=== PATIENT | male | born 1965 | race Caucasian/White ===

== ENCOUNTER 2021-05-12 14:15 | Inpatient (IN) ==
[2021-05-12] MEDS ORDERED: dexAMETHasone**PF** 10 MG/ML VIAL IV ONE (14:38)
[2021-05-12] MEDS ORDERED: ACETAMINOPHEN 1,000 MG/100 ML VIAL IV STA (14:38)
[2021-05-12] MEDS ORDERED: ONDANSETRON INJ 2 MG/ML 2 ML VIAL IV STA (14:38)
--- NOTE | 2021-05-12 14:46 | Emergency Department Note ---
History of Present Illness General Chief complaint: Shortness of Breath/Dyspnea Stated complaint: COUGH,FEVER,SORENESS,SOB,NAUSEA,CAN'T EAT Time Seen by Provider: 05/12/21 14:25 Source: patient Mode of arrival: ambulatory Limitations: no limitations History of Present Illness Maximum Pain Intensity: 8 This patient is a 55-year-old male who presents to the emergency department for evaluation of flulike symptoms for the past 1 week. Patient states he has had nasal congestion, cough, shortness of breath, fevers and nausea. He reports he has body aches. He has had a decreased appetite and has not been able to eat or drink much. His is also sick and was positive for COVID-19. Patient was not vaccinated for COVID-19. He denies any history of chronic lung issues were other medical problems. Home Medications Medication Instructions Recorded Confirmed Type naproxen sodium 220 mg tablet 220 mg PO Q8H PRN 05/12/21 05/12/21 History (Aleve) omeprazole 20 mg capsule,delayed 20 mg PO DAILY PRN 05/12/21 05/12/21 History release Allergies Allergy/AdvReac Type Severity Reaction Status Date / Time No Known Allergies Allergy Unverified 05/12/21 17:17 Past Med/Surg History Medical History Eosinophilic esophagitis GERD (gastroesophageal reflux disease) Surgical History H/O lumbosacral spine surgery History of colonoscopy History of esophagogastroduodenoscopy (EGD) Social History Smoking Status: Never smoker Tobacco Type: Cigarettes Feels Safe at Home: Yes Review of Systems A total of 10 systems reviewed and were otherwise negative Physical Exam Vital Signs Vital Signs - 24 hr 05/12/21 14:20 05/12/21 14:40 Temperature 38.8 C H Temperature Source Temporal Artery Scan Pulse Rate 108 H Pulse Rate [Right Finger] 100 H Pulse Rhythm [Right Finger] Regular Pulse Strength [Right Finger] Normal Respiratory Rate 20 20 Respiratory Effort / Characteristics Non-Labored Non-Labored Respiratory Depth Normal Normal Respiratory Pattern Regular Blood Pressure 122/77 Blood Pressure [Left Arm] 122/84 Blood Pressure Mean 92 Blood Pressure Mean [Left Arm] 96 Pulse Oximetry 85 L 94 Oxygen Delivery Method Room Air Nasal Cannula Oxygen Flow Rate 5 Sepsis Recent Fever Within 48 Hours Yes Sepsis New/Unexplained Change in Mental Status N/A Sepsis Action Taken by Nursing No Action Required VITALS: Vitals are noted on the nurse's note and reviewed by myself. GENERAL: This is a 55-year-old male, in no acute distress, well-developed well- nourished. SKIN: The skin was without rashes. EARS: External auditory canals clear, tympanic membranes pearly carr without erythema or effusion bilaterally. EYES: Pupils equal round and reactive to light and accommodation. NOSE: Patent, turbinates mildly swollen. MOUTH: Mucous membranes somewhat dry. Pharynx without erythema or exudate. NECK: Supple without nuchal rigidity. No lymphadenopathy. HEART: Regular rate and rhythm without murmurs gallops or rubs. LUNGS: Lung sounds diminished throughout with crackles in bilateral bases. ABDOMEN: Positive bowel sounds x 4. Soft, nontender to palpation. EXTREMITIES: No pitting edema of the lower extremities. NEURO: Patient was alert and oriented to person place and time. [facility] Guaifenesin (Guaifenesin 600 Mg Tabcr) 600 mg PO Q12 ANJELICA Stop: 06/11/21 20:59 Last Admin: 05/12/21 21:50 Dose: 600 mg Documented by: [id number] Sodium Chloride (Nss) 500 mls @ 80 mls/hr IV .[id number] ONE Stop: 05/12/21 23:28 Last Admin: 05/12/21 18:38 Dose: 80 mls/hr Documented by: [id number] Discontinued Medications Dexamethasone Sodium Phosphate (DexamethasonePf 10 Mg/Ml Vial) 6 mg IV NOW ONE Stop: 05/12/21 14:39 Last Admin: 05/12/21 14:53 Dose: 6 mg Documented by: [id number] Acetaminophen (Ofirmev) 1,000 mg in 100 mls @ 400 mls/hr IV NOW STA Stop: 05/12/21 14:52 Last Infusion: 05/12/21 15:30 Dose: 0 mls/hr Documented by: [id number] Admin: 05/12/21 14:53 Dose: 400 mls/hr Documented by: [id number] Remdesivir 200 mg/ Sodium (Chloride) 250 mls @ 125 mls/hr IV ONE STA; Protocol Stop: 05/12/21 18:58 Last Infusion: 05/12/21 20:52 Dose: 0 mls/hr Documented by: [id number] Admin: 05/12/21 18:38 Dose: 125 mls/hr Documented by: [id number] Pantoprazole Sodium 40 mg/ (Syringe) 10 mls @ 5 mls/min IV QAM ONE Stop: 05/12/21 17:12 Last Admin: 05/12/21 18:38 Dose: 5 mls/min Documented by: [id number] Famotidine 20 mg/ Syringe 5 mls @ 2.5 mls/min IV ONE ONE Stop: 05/12/21 17:13 Last Admin: 05/12/21 18:38 Dose: 2.5 mls/min Documented by: [id number] Ioversol (Optiray 320 125ml) 116 ml IV ONCE ONE Stop: 05/12/21 17:50 Last Admin: 05/12/21 17:51 Dose: 116 ml Documented by: [id number] Ondansetron HCl (Ondansetron Inj 2 Mg/Ml 2 Ml Vial) 4 mg IV NOW STA Stop: 05/12/21 14:39 Last Admin: 05/12/21 14:53 Dose: 4 mg Documented by: [id number] Sodium Chloride (Sodium Chloride 0.9% 10ml Flush) 30 ml IV Q24H ANJELICA Stop: 05/12/21 20:00 Last Admin: 05/12/21 20:52 Dose: Not Given Documented by: [id number] Medical Decision Making Differential Diagnosis Reactive airway disease, pneumonia, pneumothorax, COPD, CHF, infections, cardiac ischemia, pulmonary embolism, musculoskeletal, gastrointestinal, as well as other pathologies. Home Medications Current Medication List: was personally reviewed by me Laboratory Data Attestation: I reviewed the patient's lab results. Result diagrams: 05/12/21 14:47 05/12/21 14:47 Lab Results 05/12/21 05/12/21 05/12/21 Range/Units 14:47 14:47 14:47 WBC 6.24 (4.8-10.8) K/uL RBC 6.65 H (4.7-6.1) M/uL Hgb 15.9 (14.0-18.0) g/dL Hct 46.9 (42-52) % MCV 70.5 L (80-100) fL MCH 23.9 L (25-34) pg MCHC 33.9 (32-36) g/dL RDW Std Deviation 36.3 L (36.4-46.3) fL RDW Coeff of Michelle 14.0 (11.5-14.5) % Plt Count 119 L (130-400) K/uL Immature Gran % (Auto) 0.3 % Neut % (Auto) 72.3 % Lymph % (Auto) 23.2 % Cooke % (Auto) 4.0 % Eos % (Auto) 0.0 % Baso % (Auto) 0.2 % Neut # (Auto) 4.51 (1.4-6.5) K/uL Lymph # (Auto) 1.45 (1.2-3.4) K/uL Cooke # (Auto) 0.25 (0.11-0.59) K/uL Eos # (Auto) 0.00 (0-0.5) K/uL Baso # (Auto) 0.01 (0-0.2) K/uL Immature Gran # (Auto) 0.02 (0.00-0.02) K/uL Platelet Estimate Decreased L (Normal) RBC Morphology Unremarkable D-Dimer Sodium 131 L (136-145) mmol/L Potassium 3.8 (3.5-5.1) mmol/L Chloride 97 L (98-107) mmol/L Carbon Dioxide 28 (21-32) mmol/L Anion Gap 6.0 (3-11) BUN 17 (7-18) mg/dl Creatinine 0.94 (0.6-1.4) mg/dl Est Cr Clr Drug Dosing 90.6 ml/min Est GFR ( Amer) 104.6 ml/min Est GFR (Non-Af Amer) 90.3 ml/min BUN/Creatinine Ratio 17.7 (10-20) Glucose 132 H (70-99) mg/dl Calcium 8.5 (8.5-10.1) mg/dl Total Bilirubin 0.7 (0.2-1) mg/dl AST 46 H (15-37) U/L ALT 31 (12-78) Alkaline Phosphatase 49 (45-117) U/L C-Reactive Protein 8.40 H (0-0.29) mg/dl Total Protein 7.5 (6.4-8.2) gm/dl Albumin 3.1 L (3.4-5.0) gm/dl Globulin 4.4 H (2.5-4.0) gm/dl Albumin/Globulin Ratio 0.7 L (0.9-2) Procalcitonin 0.23 (0-0.5) ng/ml SARS-CoV-2 (PCR) (Negative) Influenza Type A (PCR) (Neg) Influenza Type B (PCR) (Neg) RSV (RT-PCR) (Neg) 05/12/21 05/12/21 05/12/21 Range/Units 14:47 14:47 15:35 WBC (4.8-10.8) K/uL RBC (4.7-6.1) M/uL Hgb (14.0-18.0) g/dL Hct (42-52) % MCV (80-100) fL MCH (25-34) pg MCHC (32-36) g/dL RDW Std Deviation (36.4-46.3) fL RDW Coeff of Michelle (11.5-14.5) % Plt Count (130-400) K/uL Immature Gran % (Auto) % Neut % (Auto) % Lymph % (Auto) % Cooke % (Auto) % Eos % (Auto) % Baso % (Auto) % Neut # (Auto) (1.4-6.5) K/uL Lymph # (Auto) (1.2-3.4) K/uL Cooke # (Auto) (0.11-0.59) K/uL Eos # (Auto) (0-0.5) K/uL Baso # (Auto) (0-0.2) K/uL Immature Gran # (Auto) (0.00-0.02) K/uL Platelet Estimate (Normal) RBC Morphology D-Dimer Cancelled 670 H* Sodium (136-145) mmol/L Potassium (3.5-5.1) mmol/L Chloride (98-107) mmol/L Carbon Dioxide (21-32) mmol/L Anion Gap (3-11) BUN (7-18) mg/dl Creatinine (0.6-1.4) mg/dl Est Cr Clr Drug Dosing ml/min Est GFR ( Amer) ml/min Est GFR (Non-Af Amer) ml/min BUN/Creatinine Ratio (10-20) Glucose (70-99) mg/dl Calcium (8.5-10.1) mg/dl Total Bilirubin (0.2-1) mg/dl AST (15-37) U/L ALT (12-78) Alkaline Phosphatase (45-117) U/L C-Reactive Protein (0-0.29) mg/dl Total Protein (6.4-8.2) gm/dl Albumin (3.4-5.0) gm/dl Globulin (2.5-4.0) gm/dl Albumin/Globulin Ratio (0.9-2) Procalcitonin (0-0.5) ng/ml SARS-CoV-2 (PCR) POSITIVE A* (Negative) Influenza Type A (PCR) Negative (Neg) Influenza Type B (PCR) Negative (Neg) RSV (RT-PCR) Negative (Neg) Imaging Data Attestation: I personally reviewed and interpreted this imaging study as follows: Radiologist's Impression: Chest X-Ray 05/12/21 14:38 XR chest 1V portable HISTORY: 55 years-old Male Dyspnea acute shortness of breath COMPARISON: None TECHNIQUE: Portable AP view of the chest FINDINGS: Cardiac silhouette is upper limits of normal in size. Interstitial coarsening with patchy bilateral airspace opacities. No pneumothorax. Suspected trace pleural effusions. Bones appear grossly intact. IMPRESSION: Patchy bilateral airspace opacities are compatible with multifocal pneumonia. ACT 112: Negative or not required by law. The above report was generated using voice recognition software. It may contain grammatical, syntax or spelling errors. Electronically signed by: Michelet Mason M.D. 05/12/2021 3:23 PM Chest CTA 05/12/21 16:04 CT angio chest PE protocol CT DOSE: 410.84 mGy.cm HISTORY: 55 years-old Male with covid, elevated dimer, sob. Acute shortness of breath with elevated d-dimer. COVID Positive. TECHNIQUE: Multiple CTA images of the chest were obtained after the intravenous administration of 116 ml Optiray. Coronal and sagittal MIPS were obtained from the axial data set and were submitted for review. All measurements were obtained according to NASCET criteria. A dose lowering technique was utilized adhering to the principles of ALARA. COMPARISON: Chest radiograph of same day FINDINGS: CTA: The heart is upper limits of size. No pericardial effusion. No thoracic aortic aneurysm or dissection. Unremarkable pulmonary artery. There are no filling defects identified to suggest thromboembolic disease. CT CHEST: No thyroid nodule. Mildly enlarged mediastinal and hilar lymph nodes measure up to 10 mm. No pneumothorax or pleural effusion. Bilateral subpleural predominant groundglass and alveolar opacities are noted with dependent bibasilar consolidation. The central airways are patent. The spleen appears mildly enlarged. Hypodense foci of the liver suggestive of cysts measure up to 4.9 cm within the left hepatic lobe. Several foci are too small to adequately characterize. Unremarkable soft tissues. No acute fracture. The bones appear grossly intact. IMPRESSION: 1. No pulmonary emboli. 2. Multilobar distribution of bilateral segmental groundglass and consolidative opacities compatible with viral pneumonia. 3. Mild mediastinal and hilar adenopathy, likely reactive. ACT 112: Negative or not required by law. The above report was generated using voice recognition software. It may contain grammatical, syntax or spelling errors. Electronically signed by: Michelet Mason M.D. 05/12/2021 6:24 PM ECG Data Attestation: I personally reviewed and interpreted this ECG as follows: Indication: + SOB/dyspnea Rate (beats per minute): 87 Rhythm: + normal sinus ECG Intervals/blocks: + Normal QRS ECG ST segments: + Normal ST segments Comparison ECG Date: no prior available MDM Narrative Continuous pvc monitor: Order was placed for continuous pvc monitor. Patient was placed on the pvc monitor. Patient was noted to be in sinus tachycardia at an initial rate of 110 bpm. The patient is a 55-year-old male who presents today complaining of shortness of breath and flulike symptoms. Patient recently exposed to his who was positive for COVID-19. Patient was found to be positive for COVID-19. He was hypoxic with room air O2 saturations of 85% on arrival. O2 sat improved when placed on 5 L oxygen via nasal cannula. Patient given dexamethasone. Work-up as above. No evidence of PE on CT scan. Discussed with the [facility] spitalist, did order remdesivir at their request. [facility] hospitalist will evaluate the patient for further care. Impression & Plan Pneumonia due to COVID-19 virus, Acute respiratory failure with hypoxia Discharge Plan Visit Data Chief Complaint: Shortness of Breath/Dyspnea Stated Complaint: COUGH,FEVER,SORENESS,SOB,NAUSEA,CAN'T EAT ED Provider: Sravan Chery ED Midlevel Provider: Moraima Smalls Discharge Problem: Pneumonia due to COVID-19 virus, Acute respiratory failure with hypoxia Discharge Instructions Interventions: ED Discharge Assessment Last Done: 05/12/21 19:58
[2021-05-12 14:59] LABS: Mean Corpuscular Hgb Conc 33.9 g/dL (32-36)
--- NOTE | 2021-05-12 15:24 | XRay Report ---
XR chest 1V portable HISTORY: 55 years-old Male Dyspnea acute shortness of breath COMPARISON: None TECHNIQUE: Portable AP view of the chest FINDINGS: Cardiac silhouette is upper limits of normal in size. Interstitial coarsening with patchy bilateral a irspace opacities. No pneumothorax. Suspected trace pleural effusions. Bones appear grossly intact. IMPRESSION: Patchy bilateral airspace opacities are compatible with multifocal pneumonia. ACT 112: Negative or not required by law. The above report was generated using voice recognition software. It may contain grammatical, syntax o r spelling errors. Electronically signed by: Michelet Mason M.D. 05/12/2021 3:23 PM
[2021-05-12 15:27] LABS: Albumin Level 3.1 gm/dl (3.4-5.0); BUN Creatinine Ratio 17.7 (10-20); Calcium 8.5 mg/dl (8.5-10.1); Creatinine Clr Calc Pharmacy 90.6 ml/min; Est GFR (African American) 104.6 ml/min; Est GFR (Non-African American) 90.3 ml/min; Potassium 3.8 mmol/L (3.5-5.1)
[2021-05-12 15:30] LABS: Albumin Globulin Ratio 0.7 (0.9-2); Bilirubin,Total 0.7 mg/dl (0.2-1); C Reactive Protein 8.4 mg/dl (0-0.29); Globulin 4.4 gm/dl (2.5-4.0); Total Protein 7.5 gm/dl (6.4-8.2)
[2021-05-12 15:47] LABS: Hematocrit (blood only) 46.9 % (42-52); Hemoglobin 15.9 g/dL (14.0-18.0); Mean Corpuscular Hemoglobin 23.9 pg (25-34); Mean Corpuscular Volume 70.5 fL (80-100); RDW Standard Deviation 36.3 fL (36.4-46.3); Red Blood Count 6.65 M/uL (4.7-6.1); White Blood Count 6.24 K/uL (4.8-10.8)
[2021-05-12 15:49] LABS: Platelet Count 119 K/uL (130-400)
[2021-05-12 15:50] LABS: Basophils # (auto) 0.01 K/uL (0-0.2); Basophils % (auto) 0.2 %; Immature Granulocytes # (auto) 0.02 K/uL (0.00-0.02); Immature Granulocytes % (auto) 0.3 %; Lymphocytes # (auto) 1.45 K/uL (1.2-3.4); Lymphocytes % (auto) 23.2 %; Monocytes # (auto) 0.25 K/uL (0.11-0.59); Neutrophils # (auto) 4.51 K/uL (1.4-6.5); Neutrophils % (auto) 72.3 %; Platelet Estimate Decreased (Normal); RBC Morphology Unremarkable
[2021-05-12 15:54] LABS: D Dimer 670 ug/L FEU (0-500)
[2021-05-12 16:20] LABS: Influenza A virus by PCR Negative (Neg); Influenza B virus by PCR Negative (Neg); RSV by PCR Negative (Neg)
[2021-05-12 16:26] LABS: SARS CoV2 RNA(COVID-19) InHosp POSITIVE (Negative)
[2021-05-12] MEDS ORDERED: REMDESIVIR 200 MG in SODIUM CHLORIDE 0.9% 210 ML IV STA (16:59)
[2021-05-12] MEDS ORDERED: SODIUM CHLORIDE 0.9% 10ML FLUSH IV SCH (17:00)
[2021-05-12] MEDS ORDERED: ACETAMINOPHEN 1000 MG/100 ML IV IV PRN (17:10)
[2021-05-12] MEDS ORDERED: PANTOprazole 40 MG in SYRINGE 0 ML IV ONE (17:11)
[2021-05-12] MEDS ORDERED: FAMOTIDINE 20 MG in SYRINGE 3 ML IV ONE (17:12)
[2021-05-12] MEDS ORDERED: SODIUM CHLORIDE 0.9% 500 ML IV ONE (17:14)
--- NOTE | 2021-05-12 17:26 | History & Physical Report ---
Date of Service May 12, 2021 Assessment & Plan (1) Acute respiratory failure with hypoxia: (2) Pneumonia due to COVID-19 virus: Plan: Patient presents with fever, cough, shortness of breath fever 38.8 Celsius in the ED Chest x-ray consistent with multifocal pneumonia CT PE negative for PE Meets SIRS criteria for sepsis, with fever and tachycardia Procalcitonin 0.23 CRP 8.4 D-dimer 670 Positive for COVID-19 in the ED Patient reports that his was diagnosed with COVID-19 several days ago and is also sick In addition to shortness of breath, patient reports nausea, poor appetite, abdominal discomfort but no diarrhea He has cough but not much of sputum production No chest pain He was saturating 85% on room air, currently he is on 5 L of supplemental O2 in the ED He was started on dexamethasone, and remdesivir, he was also given Zofran and IV Tylenol in the ED Plan to continue remdesivir up to 5 days Plan to continue dexamethasone up to 10 days guaifenesin, flutter valve, incentive spirometry will try to wean off O2 GERD -PPI DVT prophylaxis: lovenox Code full History of Present Illness Chief Complaint: Shortness of breath, fever Primary Care Provider: Jose Yan MD 55 M w/ hx of GERD, who presents with fever, shortness of breath, cough and nausea, and found to be hypoxic and positive for covid 19. Pt reports feeling sick for several days now. His has similar symptoms and was diagnosed with covid 19 several days ago. Pt says he can't eat or drink much as he has been having abdominal discomfort and nausea. Denies having diarrhea. Reports having fevers for several days as well. Now presents with increased shortness of breath and cough. No chest pain. In the ED pt found hypoxic 85% on RA, and currently is on 5L of suppl.O2. Covid 19 test positive. CXR c/w multifocal pna. Allergies Allergy/AdvReac Type Severity Reaction Status Date / Time No Known Allergies Allergy Unverified 05/12/21 17:17 Home Medications Medication Instructions Recorded Confirmed Type naproxen sodium 220 mg tablet 220 mg PO Q8H PRN 05/12/21 05/12/21 History (Aleve) omeprazole 20 mg capsule,delayed 20 mg PO DAILY PRN 05/12/21 05/12/21 History release Past Med/Surg History Medical History Eosinophilic esophagitis GERD (gastroesophageal reflux disease) Surgical History H/O lumbosacral spine surgery History of colonoscopy History of esophagogastroduodenoscopy (EGD) Social History Smoking Status: Never smoker Tobacco Type: Cigarettes Hx Alcohol Use: No Hx Substance Use: No Preferred Language: [place] Student Liaison Officer Required: No Beliefs That Will Affect Care: None Current Living Situation: Spouse Other Information That Helps Us Care for You: No Feels Safe at Home: Yes Assistive Devices: Oxygen - Continuous Review of Systems Constitutional: + fever, + chills, + fatigue and + weakness Eyes: no problem reported Ear, Nose, Mouth, Throat: no problem reported Respiratory: + cough and + dyspnea Cardiovascular: no chest pain Gastrointestinal: + abdominal pain and + nausea Genitourinary: no problem reported Musculoskeletal: no problem reported Integumentary: no problem reported Neurologic: no problem reported Psychiatric: no problem reported Endocrine: no problem reported Hematologic / Lymphatic: no problem reported Allergy / Immunological: no problem reported Physical Exam Constitutional: WD/WN, vitals as above (M in NAD, on suppl.O2) Eyes: PERRL, conjunctivae normal, anicteric sclerae ENMT: external ear and nose normal, oropharynx normal Neck: trachea midline, no thyromegaly Respiratory: normal respiratory effort; no respiratory distress Auscultation: + rhonchi (mild diffuse); no crackles and no wheezes Cardiovascular: RRR, no murmur, no edema Chest (Breasts): Chest: normal inspection of chest Gastrointestinal (Abdomen): normal bowel sounds, soft, nontender, no hepatosplenomegaly Musculoskeletal: no cyanosis or clubbing, extremities motor strength 5/5 Head/Neck/Chest: normocephalic, head atraumatic and neck supple Skin: no rashes, warm and dry Neurologic: PERRL, EOMI, accommodation nl, no face palsy, no dysarthria Psychiatric: A+Ox3, euthymic affect Genitourinary: no CVA tenderness Lymphatic: no lymphedema Results & Data Results & Data ([facility]) Vital Signs (Past 12 Hours) Vital Signs Temp Pulse Pulse Resp BP BP Pulse Ox 05/12/21 14:40 100 H 20 122/84 94 05/12/21 14:20 38.8 C H 108 H 20 122/77 85 L Laboratory Results 05/12/21 05/12/21 05/12/21 Range/Units 15:35 14:47 14:47 WBC (4.8-10.8) K/uL RBC (4.7-6.1) M/uL Hgb (14.0-18.0) g/dL Hct (42-52) % MCV (80-100) fL MCH (25-34) pg MCHC (32-36) g/dL RDW Std Deviation (36.4-46.3) fL RDW Coeff of Michelle (11.5-14.5) % Plt Count (130-400) K/uL Immature Gran % (Auto) % Neut % (Auto) % Lymph % (Auto) % Rankin % (Auto) % Eos % (Auto) % Baso % (Auto) % Neut # (Auto) (1.4-6.5) K/uL Lymph # (Auto) (1.2-3.4) K/uL Rankin # (Auto) (0.11-0.59) K/uL Eos # (Auto) (0-0.5) K/uL Baso # (Auto) (0-0.2) K/uL Immature Gran # (Auto) (0.00-0.02) K/uL Platelet Estimate (Normal) RBC Morphology D-Dimer 670 H* Cancelled Sodium (136-145) mmol/L Potassium (3.5-5.1) mmol/L Chloride (98-107) mmol/L Carbon Dioxide (21-32) mmol/L Anion Gap (3-11) BUN (7-18) mg/dl Creatinine (0.6-1.4) mg/dl Est Cr Clr Drug Dosing ml/min Est GFR ( Amer) ml/min Est GFR (Non-Af Amer) ml/min BUN/Creatinine Ratio (10-20) Glucose (70-99) mg/dl Calcium (8.5-10.1) mg/dl Total Bilirubin (0.2-1) mg/dl AST (15-37) U/L ALT (12-78) Alkaline Phosphatase (45-117) U/L C-Reactive Protein (0-0.29) mg/dl Total Protein (6.4-8.2) gm/dl Albumin (3.4-5.0) gm/dl Globulin (2.5-4.0) gm/dl Albumin/Globulin Ratio (0.9-2) Procalcitonin (0-0.5) ng/ml SARS-CoV-2 (PCR) POSITIVE A* (Negative) Influenza Type A (PCR) Negative (Neg) Influenza Type B (PCR) Negative (Neg) RSV (RT-PCR) Negative (Neg) 05/12/21 05/12/21 05/12/21 Range/Units 14:47 14:47 14:47 WBC 6.24 (4.8-10.8) K/uL RBC 6.65 H (4.7-6.1) M/uL Hgb 15.9 (14.0-18.0) g/dL Hct 46.9 (42-52) % MCV 70.5 L (80-100) fL MCH 23.9 L (25-34) pg MCHC 33.9 (32-36) g/dL RDW Std Deviation 36.3 L (36.4-46.3) fL RDW Coeff of Michelle 14.0 (11.5-14.5) % Plt Count 119 L (130-400) K/uL Immature Gran % (Auto) 0.3 % Neut % (Auto) 72.3 % Lymph % (Auto) 23.2 % Rankin % (Auto) 4.0 % Eos % (Auto) 0.0 % Baso % (Auto) 0.2 % Neut # (Auto) 4.51 (1.4-6.5) K/uL Lymph # (Auto) 1.45 (1.2-3.4) K/uL Rankin # (Auto) 0.25 (0.11-0.59) K/uL Eos # (Auto) 0.00 (0-0.5) K/uL Baso # (Auto) 0.01 (0-0.2) K/uL Immature Gran # (Auto) 0.02 (0.00-0.02) K/uL Platelet Estimate Decreased L (Normal) RBC Morphology Unremarkable D-Dimer Sodium 131 L (136-145) mmol/L Potassium 3.8 (3.5-5.1) mmol/L Chloride 97 L (98-107) mmol/L Carbon Dioxide 28 (21-32) mmol/L Anion Gap 6.0 (3-11) BUN 17 (7-18) mg/dl Creatinine 0.94 (0.6-1.4) mg/dl Est Cr Clr Drug Dosing 90.6 ml/min Est GFR ( Amer) 104.6 ml/min Est GFR (Non-Af Amer) 90.3 ml/min BUN/Creatinine Ratio 17.7 (10-20) Glucose 132 H (70-99) mg/dl Calcium 8.5 (8.5-10.1) mg/dl Total Bilirubin 0.7 (0.2-1) mg/dl AST 46 H (15-37) U/L ALT 31 (12-78) Alkaline Phosphatase 49 (45-117) U/L C-Reactive Protein 8.40 H (0-0.29) mg/dl Total Protein 7.5 (6.4-8.2) gm/dl Albumin 3.1 L (3.4-5.0) gm/dl Globulin 4.4 H (2.5-4.0) gm/dl Albumin/Globulin Ratio 0.7 L (0.9-2) Procalcitonin 0.23 (0-0.5) ng/ml SARS-CoV-2 (PCR) (Negative) Influenza Type A (PCR) (Neg) Influenza Type B (PCR) (Neg) RSV (RT-PCR) (Neg) Diagnostic Findings CXR FINDINGS: Cardiac silhouette is upper limits of normal in size. Interstitial coarsening with patchy bilateral airspace opacities. No pneumothorax. Suspected trace pleural effusions. Bones appear grossly intact. IMPRESSION: Patchy bilateral airspace opacities are compatible with multifocal pneumonia. CT angio chest 1. No pulmonary emboli. 2. Multilobar distribution of bilateral segmental groundglass and consolidative opacities compatible with viral pneumonia. 3. Mild mediastinal and hilar adenopathy, likely reactive. Code Status & VTE Plan VTE Prophylaxis Plan VTE Prophylaxis will be ordered: Yes
[2021-05-12] MEDS ORDERED: OPTIRAY 320 125ml IV ONE (17:49)
--- NOTE | 2021-05-12 18:25 | CT Scan Report ---
CT angio chest PE protocol CT DOSE: 410.84 mGy.cm HISTORY: 55 years-old Male with covid, elevated dimer, sob. Acute shortness of breath with elevated d-dimer. COVID Positive. TECHNIQUE: Multiple CTA images of the chest were obtained after the intravenous administration of 116 ml Optiray. Coronal and sagittal MIPS were obtained from the axial data set and were submitted for review. All measurements were obtained according to NASCET criteria. A dose lowering technique was u tilized adhering to the principles of ALARA. COMPARISON: Chest radiograph of same day FINDINGS: CTA: The heart is upper limits of size. No pericardial effusion. No thoracic aortic aneurysm or dissection . Unremarkable pulmonary artery. There are no filling defects identified to suggest thromboembolic di sease. CT CHEST: No thyroid nodule. Mildly enlarged mediastinal and hilar lymph nodes measure up to 10 mm. No pneumoth orax or pleural effusion. Bilateral subpleural predominant groundglass and alveolar opacities are not ed with dependent bibasilar consolidation. The central airways are patent. The spleen appears mildly enlarged. Hypodense foci of the liver suggestive of cysts measure up to 4.9 cm within the left hepatic lobe. Several foci are too small to adequately characterize. Unremarkable soft tissues. No acute fracture. The bones appear grossly intact. IMPRESSION: 1. No pulmonary emboli. 2. Multilobar distribution of bilateral segmental groundglass and consolidative opacities compatible with viral pneumonia. 3. Mild mediastinal and hilar adenopathy, likely reactive. ACT 112: Negative or not required by law. The above report was generated using voice recognition software. It may contain grammatical, syntax o r spelling errors. Electronically signed by: Michelet Mason M.D. 05/12/2021 6:24 PM
[2021-05-12] MEDS ORDERED: REMDESIVIR 100 MG in SODIUM CHLORIDE 0.9% 230 ML IV SCH (20:00)
[2021-05-12] MEDS: guaiFENesin 600 MG TABCR PO SCH (21:50)
[2021-05-13] MEDS ORDERED: ONDANSETRON INJ 2 MG/ML 2 ML VIAL IV PRN (03:56)
[2021-05-13] MEDS ORDERED: FAMOTIDINE 20 MG in SYRINGE 3 ML IV PRN (03:56)
[2021-05-13] MEDS: ENOXAPARIN INJ 40 MG/0.4 ML SYR SQ SCH ×3 (05:39→20:20)
[2021-05-13 07:34] LABS: Mean Corpuscular Hgb Conc 32.9 g/dL (32-36)
[2021-05-13 08:04] LABS: Hematocrit (blood only) 44.7 % (42-52); Hemoglobin 14.7 g/dL (14.0-18.0); Mean Corpuscular Hemoglobin 23.3 pg (25-34); Mean Corpuscular Volume 70.7 fL (80-100); RDW Coefficient of Variation 14.2 % (11.5-14.5); Red Blood Count 6.32 M/uL (4.7-6.1); White Blood Count 4.86 K/uL (4.8-10.8)
--- NOTE | 2021-05-13 08:07 | Hospitalist Progress Note ---
Date of Service May 13, 2021 Assessment & Plan (1) Acute respiratory failure with hypoxia: (2) Pneumonia due to COVID-19 virus: Plan: Patient presents with fever, cough, shortness of breath fever 38.8 Celsius in the ED Chest x-ray consistent with multifocal pneumonia CT PE negative for PE Meets SIRS criteria for sepsis, with fever and tachycardia Procalcitonin 0.23 CRP 8.4 D-dimer 670 Positive for COVID-19 in the ED Patient reports that his was diagnosed with COVID-19 several days ago and is also sick In addition to shortness of breath, patient reports nausea, poor appetite, abdominal discomfort but no diarrhea Abdominal discomfort and nausea now improved He has cough but not much of sputum production No chest pain He was saturating 85% on room air in the ED and was placed on 5 L of supplemental O2 - he is still on 5-6L He was started on dexamethasone, and remdesivir, he was also given Zofran and IV Tylenol in the ED Plan to continue remdesivir up to 5 days Plan to continue dexamethasone up to 10 days guaifenesin, flutter valve, incentive spirometry will try to wean off O2 GERD -PPI DVT prophylaxis: lovenox Code full Admission and Anticipated Discharge Date Admission Date: May 12, 2021 Subjective Pt seen in follow up of hypoxia, covid 19 pna Pt is currently proning, still on 5L of suppl. O2 Says his abdominal discomfort feels better, nausea much improved and he would like his diet to be advanced Denies any chest pain, fever, chills, increased shortness of breath He is able to speak in full sentences Of note, pt's was in ER today to be evaluated - she was diagnosed w/ covid before the pt. Per pt, she was discharged home. Pt's daughter in law reached out via [employer] text and was updated via [employer] text. Review of Systems Review of Systems: All systems reviewed & are unremarkable except as noted in Subjective Physical Exam Physical Exam: Constitutional:L WD/WN M in NAD, on suppl.O2 via NC 5 -6L Eyes: PERRL, EOMI, conju nctivae normal, an icteric sclerae ENMT: external ear and n ose normal, oropha rynx normal Neck: supple Respiratory: normal respiratory effort; no respir atory distress Au scultation: + rhon chi (mild diffuse) ; no crackles and no wheezes Cardiovascular:L RRR, no murmur, no edema Chest (Breasts): Chest: normal insp ection of chest Gastrointestinal ( Abdomen): normal bowel sound s, soft, nontender , nondistended Musculoskeletal: extremities motor strength 5/5 Head /Neck/Chest: normo cephalic, head atr aumatic and neck s upple Skin: no rashes, warm an d dry Neurologic: PERRL, EOMI, no fa ce palsy, no dysar thria, moves extre mities Psychiatric: A+Ox3, euthymic af fect Genitourinary: no CVA tenderness Lymphatic: no lymphedema Results & Data Results & Data ([facility]) Vital Signs (Past 12 Hours) Vital Signs Temp Pulse Resp BP Pulse Ox 05/13/21 06:58 36.4 C L 70 18 111/71 91 05/13/21 03:23 36.6 C 62 18 125/83 95 05/12/21 23:56 36.9 C 70 19 125/69 93 Laboratory Results 05/13/21 05/13/21 Range/Units 06:22 06:22 WBC 4.86 (4.8-10.8) K/uL RBC 6.32 H (4.7-6.1) M/uL Hgb 14.7 (14.0-18.0) g/dL Hct 44.7 (42-52) % MCV 70.7 L (80-100) fL MCH 23.3 L (25-34) pg MCHC 32.9 (32-36) g/dL RDW Std Deviation 37.0 (36.4-46.3) fL RDW Coeff of Michelle 14.2 (11.5-14.5) % Plt Count 134 (130-400) K/uL Platelet Estimate Decreased L (Normal) Sodium 136 (136-145) mmol/L Potassium 4.4 D (3.5-5.1) mmol/L Chloride 101 (98-107) mmol/L Carbon Dioxide 30 (21-32) mmol/L Anion Gap 5.0 (3-11) BUN 21 H (7-18) mg/dl Creatinine 0.91 (0.6-1.4) mg/dl Est Cr Clr Drug Dosing 93.6 ml/min Est GFR ( Amer) 108.8 ml/min Est GFR (Non-Af Amer) 93.9 ml/min BUN/Creatinine Ratio 22.4 H (10-20) Glucose 164 H (70-99) mg/dl Calcium 8.5 (8.5-10.1) mg/dl Phosphorus 2.7 (2.5-4.9) mg/dl Magnesium 2.5 H (1.8-2.4) mg/dl Total Bilirubin 0.5 (0.2-1) mg/dl AST 42 H (15-37) U/L ALT 35 (12-78) Alkaline Phosphatase 46 (45-117) U/L Total Protein 6.7 (6.4-8.2) gm/dl Albumin 2.6 L (3.4-5.0) gm/dl Globulin 4.1 H (2.5-4.0) gm/dl Albumin/Globulin Ratio 0.6 L (0.9-2) Medications Administered Current Inpatient Medications Acetaminophen (Acetaminophen 325 Mg Tab) 650 mg PO Q4H PRN PRN Reason: Pain or Fever Stop: 06/11/21 17:05 Enoxaparin Sodium (Enoxaparin Inj 40 Mg/0.4 Ml Syr) 40 mg SQ Q12H [facility] Stop: 06/12/21 05:59 Last Admin: 05/13/21 05:39 Dose: 40 mg Documented by: Guaifenesin (Guaifenesin 600 Mg Tabcr) 600 mg PO Q12 [facility] Stop: 06/11/21 20:59 Last Admin: 05/13/21 11:39 Dose: 600 mg Documented by: Remdesivir 100 mg/ Sodium (Chloride) 250 mls @ 250 mls/hr IV Q24H [facility]; Protocol Stop: 05/16/21 20:59 Famotidine 20 mg/ Syringe 5 mls @ 2.5 mls/min IV BID PRN PRN Reason: dyspepsia Stop: 06/12/21 08:59 Dexamethasone 6 mg/ Syringe 1.5 mls @ 1 mls/min IV Q24H [facility] Stop: 05/21/21 08:59 Last Admin: 05/13/21 08:44 Dose: 1 mls/min Documented by: Ondansetron HCl (Ondansetron Inj 2 Mg/Ml 2 Ml Vial) 2 mg IV Q4H PRN PRN Reason: Nausea Stop: 06/12/21 03:55 Pantoprazole Sodium (Pantoprazole 40 Mg Tab) 40 mg PO QAM [facility] Stop: 06/12/21 08:59 Last Admin: 05/13/21 08:44 Dose: 40 mg Documented by: Sodium Chloride (Sodium Chloride 0.9% 10ml Flush) 30 ml IV Q24H [facility] Stop: 05/16/21 21:01
[2021-05-13 08:09] LABS: Albumin Globulin Ratio 0.6 (0.9-2); Albumin Level 2.6 gm/dl (3.4-5.0); BUN Creatinine Ratio 22.4 (10-20); Calcium 8.5 mg/dl (8.5-10.1); Creatinine Clr Calc Pharmacy 93.6 ml/min; Est GFR (African American) 108.8 ml/min; Est GFR (Non-African American) 93.9 ml/min; Globulin 4.1 gm/dl (2.5-4.0); Magnesium 2.5 mg/dl (1.8-2.4); Phosphorus 2.7 mg/dl (2.5-4.9); Potassium 4.4 mmol/L (3.5-5.1); Total Protein 6.7 gm/dl (6.4-8.2)
[2021-05-13 08:10] LABS: Platelet Count 134 K/uL (130-400); Platelet Estimate Decreased (Normal)
[2021-05-13] MEDS: dexAMETHasone 6 MG in SYRINGE 0 ML IV SCH (08:44)
[2021-05-13] MEDS: PANTOprazole 40 MG TAB PO SCH (08:44)
[2021-05-13 09:15] LABS: Bilirubin,Total 0.5 mg/dl (0.2-1)
[2021-05-13] MEDS: guaiFENesin 600 MG TABCR PO SCH ×2 (11:39→20:20)
[2021-05-13] MEDS ORDERED: REMDESIVIR 100 MG in SODIUM CHLORIDE 0.9% 230 ML IV SCH (17:00)
[2021-05-13] MEDS: REMDESIVIR 100 MG in SODIUM CHLORIDE 0.9% 230 ML IV SCH (20:18)
[2021-05-13] MEDS: SODIUM CHLORIDE 0.9% 10ML FLUSH IV SCH (20:19)
[2021-05-14] MEDS: ENOXAPARIN INJ 40 MG/0.4 ML SYR SQ SCH ×2 (05:41→18:07)
[2021-05-14 07:31] LABS: Hematocrit (blood only) 44.4 % (42-52); Hemoglobin 14.8 g/dL (14.0-18.0); Mean Corpuscular Hemoglobin 23.6 pg (25-34); Mean Corpuscular Hgb Conc 33.3 g/dL (32-36); Mean Corpuscular Volume 70.9 fL (80-100); Platelet Count 174 K/uL (130-400); RDW Coefficient of Variation 14.2 % (11.5-14.5); RDW Standard Deviation 37.2 fL (36.4-46.3); Red Blood Count 6.26 M/uL (4.7-6.1); White Blood Count 6.43 K/uL (4.8-10.8)
--- NOTE | 2021-05-14 07:33 | Electrocardiogram Report ---
Test Reason : Blood Pressure : / mmHG Vent. Rate : 087 BPM Atrial Rate : 087 BPM P-R Int : 148 ms QRS Dur : 068 ms QT Int : 354 ms P-R-T Axes : 038 024 012 degrees QTc Int : 425 ms Normal sinus rhythm Normal ECG No previous ECGs available Confirmed by Jose Baker ([id number]) on 05/14/2021 7:32:39 AM Referred By: REFERRED SELF Confirmed By:Jose Baker
[2021-05-14] MEDS: guaiFENesin 600 MG TABCR PO SCH ×2 (08:22→20:53)
[2021-05-14] MEDS: dexAMETHasone 6 MG in SYRINGE 0 ML IV SCH (08:22)
[2021-05-14] MEDS: PANTOprazole 40 MG TAB PO SCH (08:22)
[2021-05-14] MEDS ORDERED: FAMOTIDINE 20 MG TAB PO PRN (09:36)
[2021-05-14 09:42] LABS: Albumin Level 2.4 gm/dl (3.4-5.0); Calcium 8.3 mg/dl (8.5-10.1); Creatinine Clr Calc Pharmacy 106.5 ml/min; Est GFR (African American) 115.7 ml/min; Est GFR (Non-African American) 99.9 ml/min; Magnesium 2.5 mg/dl (1.8-2.4); Potassium 4.5 mmol/L (3.5-5.1)
[2021-05-14 09:44] LABS: Albumin Globulin Ratio 0.6 (0.9-2); Bilirubin,Total 0.5 mg/dl (0.2-1); C Reactive Protein 3.01 mg/dl (0-0.29); Phosphorus 3.1 mg/dl (2.5-4.9); Total Protein 6.4 gm/dl (6.4-8.2)
--- NOTE | 2021-05-14 10:13 | Hospitalist Progress Note ---
Date of Service May 14, 2021 Assessment & Plan (1) Acute respiratory failure with hypoxia: Plan: 2/[address] PE negative for blood clot. Met SIRS criteria with fever and tachycardia on admission. CRP 3 so doesn't meet criteria for baricitinib at this time. Continue remdesivir and dexamethasone. Cont guaifenesin, flutter valve, incentive spirometry. Cont to prone. OK with intubation at this time if needed. Transfer to PCU. (2) Pneumonia due to COVID-19 virus: (3) GERD (gastroesophageal reflux disease): Plan: Cont PPI daily (4) DVT prophylaxis: Plan: Lovenox Full Dispo-transfer to PCU. Kiara Vazquez DO [facility] Hospitalist Admission and Anticipated Discharge Date Admission Date: May 12, 2021 Subjective 55 yo M with two weeks of symptoms of COVID 19. Increased oxygen needs overnight from 5LPM to 12LPM via hi flow green nasal canula. He appears withdrawn but is not lethargic and is oriented and answering questions appropriately. HE denies any SOB, coughing, abdominal pain, diarrhea or fever. Denies chest pain. Asking if he is not getting better. We discussed expectations that he may need more oxygen supplementation including mechanical ventilation and that he may be here for at least one week. He is concerned about "being inside" that long. Proning well. also sick and was in ER yesterday but sent home per him. States he isn't getting any sleep. Review of Systems Review of Systems: All systems were reviewed and negative except as indicated in subjective above. Physical Exam Physical Exam: CONSTITUTIONAL: WNWD, vitals as above, generally well-appeari ng, NAD, prone position EYES: normal conjunctivae, no scleral icterus, ENT: external ear and nose normal, NECK: trachea midline, RESPIRATORY: crackles at bases bilaterally, rales or wheezes, normal respiratory effort CARDIOVASCULAR: regular rate and rhythm, S1 and 2 heard without murmurs, gallops or rubs, no JVD, no peripheral edema, GASTROINTESTINAL: normal bowel sounds, soft, nontender, ND, no guarding MUSCULOSKELETAL: strength 5/5 throughout, head is normocephalic and atraumatic, SKIN: warm and dry, NEUROLOGIC: CN 2-12 grossly intact, no sensory deficit, normal cognition, no rmal speech, no tremor. No gross focal deficits. PSYCHIATRIC: alert cooperative and oriented to person, place and time. Depressed affect. Results & Data Results & Data ([facility]) Vital Signs (Past 12 Hours) Vital Signs Temp Pulse Pulse Resp BP Pulse Ox 05/14/21 07:18 36.5 C 68 18 108/70 95 05/14/21 03:21 36.8 C 70 20 107/64 94 05/14/21 00:50 64 05/13/21 22:44 36.5 C 74 20 129/81 96 Laboratory Results Short CBC 05/14/21 Range/Units 06:35 WBC 6.43 (4.8-10.8) K/uL Hgb 14.8 (14.0-18.0) g/dL Hct 44.4 (42-52) % Plt Count 174 (130-400) K/uL BMP 05/14/21 06:35 Sodium 136 Potassium 4.5 Chloride 104 Carbon Dioxide 27 BUN 21 H Creatinine 0.80 Glucose 141 H Calcium 8.3 L Liver Function 05/14/21 Range/Units 06:35 Total Bilirubin 0.5 (0.2-1) mg/dl AST 40 H (15-37) U/L ALT 39 (12-78) Alkaline Phosphatase 42 L (45-117) U/L Albumin 2.4 L (3.4-5.0) gm/dl Medications Administered Current Inpatient Medications Acetaminophen (Acetaminophen 325 Mg Tab) 650 mg PO Q4H PRN PRN Reason: Pain or Fever Stop: 06/11/21 17:05 Enoxaparin Sodium (Enoxaparin Inj 40 Mg/0.4 Ml Syr) 40 mg SQ Q12H [facility] Stop: 06/12/21 05:59 Last Admin: 05/14/21 05:41 Dose: 40 mg Documented by: Famotidine (Famotidine 20 Mg Tab) 20 mg PO BID PRN PRN Reason: Heartburn Stop: 06/13/21 09:35 Guaifenesin (Guaifenesin 600 Mg Tabcr) 600 mg PO Q12 [facility] Stop: 06/11/21 20:59 Last Admin: 05/14/21 08:22 Dose: 600 mg Documented by: Remdesivir 100 mg/ Sodium (Chloride) 250 mls @ 250 mls/hr IV Q24H [facility]; Protocol Stop: 05/16/21 20:59 Last Infusion: 05/13/21 21:29 Dose: Infused Documented by: Dexamethasone 6 mg/ Syringe 1.5 mls @ 1 mls/min IV Q24H [facility] Stop: 05/21/21 08:59 Last Admin: 05/14/21 08:22 Dose: 1 mls/min Documented by: Ondansetron HCl (Ondansetron Inj 2 Mg/Ml 2 Ml Vial) 2 mg IV Q4H PRN PRN Reason: Nausea Stop: 06/12/21 03:55 Pantoprazole Sodium (Pantoprazole 40 Mg Tab) 40 mg PO QAM [facility] Stop: 06/12/21 08:59 Last Admin: 05/14/21 08:22 Dose: 40 mg Documented by: Sodium Chloride (Sodium Chloride 0.9% 10ml Flush) 30 ml IV Q24H [facility] Stop: 05/16/21 21:01 Last Admin: 05/13/21 20:19 Dose: 30 ml Documented by:
[2021-05-14] MEDS: REMDESIVIR 100 MG in SODIUM CHLORIDE 0.9% 230 ML IV SCH (20:52)
[2021-05-14] MEDS: SODIUM CHLORIDE 0.9% 10ML FLUSH IV SCH (22:15)
[2021-05-15] MEDS: ENOXAPARIN INJ 40 MG/0.4 ML SYR SQ SCH (05:36)
[2021-05-15 07:31] LABS: Albumin Level 2.5 gm/dl (3.4-5.0); BUN Creatinine Ratio 23.7 (10-20); Calcium 8.5 mg/dl (8.5-10.1); Creatinine Clr Calc Pharmacy 97.9 ml/min; Est GFR (African American) 111.8 ml/min; Est GFR (Non-African American) 96.5 ml/min; Magnesium 2.5 mg/dl (1.8-2.4); Potassium 3.9 mmol/L (3.5-5.1)
[2021-05-15 07:34] LABS: Albumin Globulin Ratio 0.6 (0.9-2); Bilirubin,Total 0.6 mg/dl (0.2-1); Phosphorus 2.8 mg/dl (2.5-4.9); Total Protein 6.5 gm/dl (6.4-8.2)
[2021-05-15] MEDS: ACETAMINOPHEN 325 MG TAB PO PRN ×2 (08:05→20:46)
[2021-05-15] MEDS: guaiFENesin 600 MG TABCR PO SCH ×2 (08:06→20:38)
[2021-05-15] MEDS: PANTOprazole 40 MG TAB PO SCH (08:06)
[2021-05-15] MEDS: dexAMETHasone 6 MG in SYRINGE 0 ML IV SCH (08:06)
--- NOTE | 2021-05-15 13:08 | Hospitalist Progress Note ---
Date of Service May 15, 2021 Assessment & Plan (1) Acute respiratory failure with hypoxia: Plan: 2/[address] PE negative for blood clot. Met SIRS criteria with fever and tachycardia on admission. Doesn't meet criteria for baricitinib at this time. Continue remdesivir and dexamethasone. Cont guaifenesin, flutter valve, incentive spirometry. Cont to prone. OK with intubation at this time if needed. Cont PCU monitoring. (2) Pneumonia due to COVID-19 virus: Plan: Cont remdesivir, dexamethasone. Pulmonary toilet. (3) GERD (gastroesophageal reflux disease): Plan: Cont PPI daily (4) DVT prophylaxis: Plan: Lovenox Full Dispo-cont hospitalization until oxygen needs have resolved. Kiara Vazquez DO [facility] Hospitalist Admission and Anticipated Discharge Date Admission Date: May 12, 2021 Subjective 55 yo M with two weeks of symptoms of COVID 19. Oxygen needs have stabilized overnight and he reports feeling better. Denies shortness of breath or persistent cough. He does report it was a "rough night." He appears less withdrawn. Denies any abdominal pain, diarrhea or fever. Denies chest pain. Review of Systems Review of Systems: All systems were reviewed and negative except as indicated in subjective above. Physical Exam Physical Exam: CONSTITUTIONAL: WNWD, vitals as above, generally well- appearing, NAD, lateral decubitus position. EYES: normal conjunctivae, no scleral icterus ENT: external ear and nose normal, NECK: trachea midline, RESPIRATORY: no crackles, rales or wheezes, normal respiratory effort CARDIOVASCULAR: regular rate and rhythm, S1 and 2 heard without murmurs, gallops or rubs, no JVD, no peripheral edema, GASTROINTESTINAL: soft, nontender, ND, no guarding MUSCULOSKELETAL: strength 5/5 throughout, head is normocephalic and atraumatic SKIN: warm and dry NEUROLOGIC: CN 2-12 grossly intact, no sensory deficit, normal cognition, normal speech, no tremor. No gross focal deficits. PSYCHIATRIC: alert cooperative and oriented to person, place and time. Results & Data Results & Data ([facility]) Vital Signs (Past 12 Hours) Vital Signs Temp Pulse Resp BP Pulse Ox 05/15/21 12:00 37.0 C 90 18 124/74 05/15/21 11:17 81 05/15/21 08:00 36.8 C 66 20 124/72 90 05/15/21 04:55 37 C 81 18 90 Laboratory Results BMP 05/15/21 06:08 Sodium 137 Potassium 3.9 Chloride 102 Carbon Dioxide 27 BUN 21 H Creatinine 0.87 Glucose 106 H Calcium 8.5 Liver Function 05/15/21 Range/Units 06:08 Total Bilirubin 0.6 (0.2-1) mg/dl AST 36 (15-37) U/L ALT 41 (12-78) Alkaline Phosphatase 44 L (45-117) U/L Albumin 2.5 L (3.4-5.0) gm/dl Medications Administered Current Inpatient Medications Acetaminophen (Acetaminophen 325 Mg Tab) 650 mg PO Q4H PRN PRN Reason: Pain or Fever Stop: 06/11/21 17:05 Last Admin: 05/15/21 08:05 Dose: 650 mg Documented by: Enoxaparin Sodium (Enoxaparin Inj 40 Mg/0.4 Ml Syr) 40 mg SQ DAILY [facility] Stop: 06/15/21 08:59 Famotidine (Famotidine 20 Mg Tab) 20 mg PO BID PRN PRN Reason: Heartburn Stop: 06/13/21 09:35 Guaifenesin (Guaifenesin 600 Mg Tabcr) 600 mg PO Q12 [facility] Stop: 06/11/21 20:59 Last Admin: 05/15/21 08:06 Dose: 600 mg Documented by: Remdesivir 100 mg/ Sodium (Chloride) 250 mls @ 250 mls/hr IV Q24H [facility]; Protocol Stop: 05/16/21 20:59 Last Infusion: 05/14/21 22:15 Dose: Infused Documented by: Dexamethasone 6 mg/ Syringe 1.5 mls @ 1 mls/min IV Q24H [facility] Stop: 05/21/21 08:59 Last Admin: 05/15/21 08:06 Dose: 1 mls/min Documented by: Ondansetron HCl (Ondansetron Inj 2 Mg/Ml 2 Ml Vial) 2 mg IV Q4H PRN PRN Reason: Nausea Stop: 06/12/21 03:55 Pantoprazole Sodium (Pantoprazole 40 Mg Tab) 40 mg PO QAM [facility] Stop: 06/12/21 08:59 Last Admin: 05/15/21 08:06 Dose: 40 mg Documented by: Sodium Chloride (Sodium Chloride 0.9% 10ml Flush) 30 ml IV Q24H [facility] Stop: 05/16/21 21:01 Last Admin: 05/14/21 22:15 Dose: 30 ml Documented by:
[2021-05-15] MEDS: REMDESIVIR 100 MG in SODIUM CHLORIDE 0.9% 230 ML IV SCH (19:24)
[2021-05-15] MEDS: SODIUM CHLORIDE 0.9% 10ML FLUSH IV SCH (20:38)
[2021-05-16] MEDS: guaiFENesin 600 MG TABCR PO SCH ×2 (07:59→21:15)
[2021-05-16] MEDS: PANTOprazole 40 MG TAB PO SCH (07:59)
[2021-05-16] MEDS: ENOXAPARIN INJ 40 MG/0.4 ML SYR SQ SCH (07:59)
[2021-05-16] MEDS: dexAMETHasone 6 MG in SYRINGE 0 ML IV SCH (07:59)
[2021-05-16] MEDS: ACETAMINOPHEN 325 MG TAB PO PRN (08:00)
[2021-05-16 08:07] LABS: Hematocrit (blood only) 43.5 % (42-52); Hemoglobin 14.4 g/dL (14.0-18.0); Mean Corpuscular Hemoglobin 23.5 pg (25-34); Mean Corpuscular Hgb Conc 33.1 g/dL (32-36); Mean Corpuscular Volume 70.8 fL (80-100); Mean Platelet Volume 10.8 fL (7.4-10.4); Platelet Count 224 K/uL (130-400); RDW Coefficient of Variation 13.9 % (11.5-14.5); RDW Standard Deviation 36.1 fL (36.4-46.3); Red Blood Count 6.14 M/uL (4.7-6.1); White Blood Count 7.73 K/uL (4.8-10.8)
[2021-05-16 08:35] LABS: BUN Creatinine Ratio 19.2 (10-20); Creatinine Clr Calc Pharmacy 102.6 ml/min; Est GFR (Non-African American) 98.4 ml/min
[2021-05-16 08:36] LABS: C Reactive Protein 3.86 mg/dl (0-0.29)
[2021-05-16] MEDS ORDERED: FUROSEMIDE INJ 20 MG/2 ML VIAL IV ONE (09:30)
--- NOTE | 2021-05-16 09:59 | XRay Report ---
XR chest 1V portable HISTORY: worsening hypoxia, covid pna COMPARISON: Chest 05/12/2021. FINDINGS: No pneumothorax. No pleural effusions. The heart is normal in size. There are patchy multif ocal bilateral airspace opacities as pronounced on the left. This is stable slightly improved compare d to prior study. IMPRESSION: Stable to slight improvement in the multifocal viral pneumonia. ACT 112: Negative or not required by law. Electronically signed by: Keron Perez M.D. 05/16/2021 9:58 AM
--- NOTE | 2021-05-16 17:39 | Hospitalist Progress Note ---
Date of Service May 16, 2021 Assessment & Plan (1) Acute respiratory failure with hypoxia: Plan: 2/[address] PE negative for blood clot on admission Met SIRS criteria with fever and tachycardia on admission. No indication for baricitinib. Continue remdesivir and dexamethasone. Switch dexamethasone from IV to p.o. and it twice daily for longer lasting effect. Cont guaifenesin, flutter valve, incentive spirometry. Cont to prone. OK with intubation at this time if needed. Cont PCU monitoring. (2) Pneumonia due to COVID-19 virus: Plan: Cont remdesivir, dexamethasone. Pulmonary toilet. Continue supportive oxygen with weaning as tolerated. Patient is compliant with proning. (3) GERD (gastroesophageal reflux disease): Plan: Cont PPI daily (4) DVT prophylaxis: Plan: Lovenox Full Dispo-cont hospitalization until oxygen needs have resolved. I touch base with his [id number] who is a nurse at this facility and updated her on the situation. All questions were answered. Kiara Vazquez DO [facility] Hospitalist Admission and Anticipated Discharge Date Admission Date: May 12, 2021 Subjective 55 yo M with two weeks of symptoms of COVID 19. Reports worsening shortness of breath with worsening hypoxia overnight Was not sleeping well last night because of it Appears somewhat defeated as he felt better yesterday and feels worse today. Feels the steroids are wearing off at the end of the day Otherwise denies any issues. Review of Systems Review of Systems: All systems were reviewed and negative except as indicated above. Physical Exam Physical Exam: CONSTITUTIONAL: WNWD, vitals as above, generally well- appearing, NAD, easily moves around the bed and is not winded EYES: normal conjunctivae, no scleral icterus ENT: external ear and nose normal, NECK: trachea midline, RESPIRATORY: no crackles, rales or wheezes, normal respiratory effort CARDIOVASCULAR: regular rate and rhythm, S1 and 2 heard without murmurs, gallops or rubs, no JVD, no peripheral edema, GASTROINTESTINAL: soft, nontender, ND, no guarding MUSCULOSKELETAL: strength 5/5 throughout, head is normocephalic and atraumatic SKIN: warm and dry NEUROLOGIC: CN 2-12 grossly intact, no sensory deficit, normal cognition, normal speech, no tremor. No gross focal deficits. PSYCHIATRIC: alert cooperative and oriented to person, place and time. Results & Data Results & Data ([facility]) Vital Signs (Past 12 Hours) Vital Signs Temp Pulse Resp BP Pulse Ox 05/16/21 16:40 37.0 C 88 18 127/63 95 05/16/21 15:10 84 05/16/21 12:30 36.4 C L 91 H 24 111/74 92 05/16/21 12:00 91 H 05/16/21 08:00 89 Laboratory Results Short CBC 05/16/21 Range/Units 07:38 WBC 7.73 (4.8-10.8) K/uL Hgb 14.4 (14.0-18.0) g/dL Hct 43.5 (42-52) % Plt Count 224 (130-400) K/uL BMP 05/16/21 07:38 Sodium 135 L Potassium 4.0 Chloride 102 Carbon Dioxide 28 BUN 16 Creatinine 0.83 Glucose 107 H Calcium 8.0 L Liver Function 05/16/21 Range/Units 07:38 AST 30 (15-37) U/L ALT 41 (12-78) Diagnostic Findings Chest X-Ray 05/16/21 09:25 XR chest 1V portable HISTORY: worsening hypoxia, covid pna COMPARISON: Chest 05/12/2021. FINDINGS: No pneumothorax. No pleural effusions. The heart is normal in size. There are patchy multifocal bilateral airspace opacities as pronounced on the left. This is stable slightly improved compared to prior study. IMPRESSION: Stable to slight improvement in the multifocal viral pneumonia. ACT 112: Negative or not required by law. Electronically signed by: Keron Perez M.D. 05/16/2021 9:58 AM Medications Administered Current Inpatient Medications Acetaminophen (Acetaminophen 325 Mg Tab) 650 mg PO Q4H PRN PRN Reason: Pain or Fever Stop: 06/11/21 17:05 Last Admin: 05/16/21 08:00 Dose: 650 mg Documented by: Dexamethasone (Dexamethasone 4 Mg Tab) 4 mg PO BID [facility] Stop: 06/15/21 20:59 Enoxaparin Sodium (Enoxaparin Inj 40 Mg/0.4 Ml Syr) 40 mg SQ DAILY [facility] Stop: 06/15/21 08:59 Last Admin: 05/16/21 07:59 Dose: 40 mg Documented by: Famotidine (Famotidine 20 Mg Tab) 20 mg PO BID PRN PRN Reason: Heartburn Stop: 06/13/21 09:35 Guaifenesin (Guaifenesin 600 Mg Tabcr) 600 mg PO Q12 [facility] Stop: 06/11/21 20:59 Last Admin: 05/16/21 07:59 Dose: 600 mg Documented by: Remdesivir 100 mg/ Sodium (Chloride) 250 mls @ 250 mls/hr IV Q24H [facility]; Protocol Stop: 05/16/21 20:59 Last Infusion: 05/15/21 20:38 Dose: Infused Documented by: Ondansetron HCl (Ondansetron Inj 2 Mg/Ml 2 Ml Vial) 2 mg IV Q4H PRN PRN Reason: Nausea Stop: 06/12/21 03:55 Pantoprazole Sodium (Pantoprazole 40 Mg Tab) 40 mg PO QAM [facility] Stop: 06/12/21 08:59 Last Admin: 05/16/21 07:59 Dose: 40 mg Documented by: Sodium Chloride (Sodium Chloride 0.9% 10ml Flush) 30 ml IV Q24H [facility] Stop: 05/16/21 21:01 Last Admin: 05/15/21 20:38 Dose: 30 ml Documented by:
[2021-05-16] MEDS: dexAMETHasone 4 MG TAB PO SCH (21:14)
[2021-05-16] MEDS: REMDESIVIR 100 MG in SODIUM CHLORIDE 0.9% 230 ML IV SCH (21:14)
[2021-05-16] MEDS: SODIUM CHLORIDE 0.9% 10ML FLUSH IV SCH (23:05)
[2021-05-17] MEDS: guaiFENesin 600 MG TABCR PO SCH ×2 (07:54→19:32)
[2021-05-17] MEDS: ENOXAPARIN INJ 40 MG/0.4 ML SYR SQ SCH (07:54)
[2021-05-17] MEDS: PANTOprazole 40 MG TAB PO SCH (07:54)
[2021-05-17] MEDS: dexAMETHasone 4 MG TAB PO SCH ×2 (07:54→19:32)
[2021-05-17] MEDS: ACETAMINOPHEN 325 MG TAB PO PRN (07:54)
[2021-05-17 08:13] LABS: Hematocrit (blood only) 43.6 % (42-52); Hemoglobin 14.5 g/dL (14.0-18.0); Mean Corpuscular Hemoglobin 23.4 pg (25-34); Mean Corpuscular Hgb Conc 33.3 g/dL (32-36); Mean Corpuscular Volume 70.4 fL (80-100); Mean Platelet Volume 10.8 fL (7.4-10.4); Platelet Count 242 K/uL (130-400); RDW Standard Deviation 35.7 fL (36.4-46.3); Red Blood Count 6.19 M/uL (4.7-6.1); White Blood Count 8.12 K/uL (4.8-10.8)
[2021-05-17 08:57] LABS: BUN Creatinine Ratio 24.1 (10-20); C Reactive Protein 8.62 mg/dl (0-0.29); Calcium 8.2 mg/dl (8.5-10.1); Creatinine Clr Calc Pharmacy 118.3 ml/min; Est GFR (African American) 120.9 ml/min; Est GFR (Non-African American) 104.3 ml/min; Potassium 4.2 mmol/L (3.5-5.1)
--- NOTE | 2021-05-17 18:49 | Hospitalist Progress Note ---
Date of Service May 17, 2021 Assessment & Plan (1) Acute respiratory failure with hypoxia: Plan: 2/[address] PE negative for blood clot on admission Met SIRS criteria with fever and tachycardia on admission. No indication for baricitinib. Continue remdesivir and dexamethasone. Switched dexamethasone from IV to p.o. and it twice daily for longer lasting effect. Patient feels better on this. Cont guaifenesin, flutter valve, incentive spirometry. Cont to prone. OK with intubation at this time if needed. Cont PCU monitoring. Lasix PRN to keep him overall net negative. (2) Pneumonia due to COVID-19 virus: Plan: Cont remdesivir, dexamethasone. Pulmonary toilet. Continue supportive oxygen with weaning as tolerated. Patient is compliant with proning. (3) GERD (gastroesophageal reflux disease): Plan: Cont PPI daily (4) DVT prophylaxis: Plan: Lovenox Full Dispo-cont hospitalization until oxygen needs have resolved. [facility]tic[facility]ated Discharge Date Admission Date: May 12, 2021 Subjective 55 yo M with two weeks of symptoms of COVID 19. Feels about the same as yesterday Slow improvement overall Likes the split decadron dosing tolerating PO Review of Systems Review of Systems: All systems were reviewed and negative except as indicated above. Physical Exam Physical Exam: CONSTITUTIONAL: WNWD, vitals as above, generally well- appearing, NAD, easily moves around the bed and is not winded EYES: normal conjunctivae, no scleral icterus ENT: external ear and nose normal, NECK: trachea midline, RESPIRATORY: no crackles, rales or wheezes, normal respiratory effort CARDIOVASCULAR: regular rate and rhythm, S1 and 2 heard without murmurs, gallop s or rubs, no JVD, no peripheral edema, GASTROINTESTINAL: soft, nontender, ND, no guarding MUSCULOSKELETAL: strength 5/5 throughout, head is normocephalic and atraumatic SKIN: warm and dry NEUROLOGIC: CN 2-12 grossly intact, no sensory deficit, normal cognition, normal speech, no tremor. No gross focal deficits. PSYCHIATRIC: alert cooperative and oriented to person, place and time. Results & Data Results & Data ([facility]) Vital Signs (Past 12 Hours) Vital Signs Temp Pulse Resp BP Pulse Ox 05/17/21 16:00 82 20 94 05/17/21 15:34 85 20 89 L 05/17/21 12:24 36.5 C 79 20 106/69 92 05/17/21 10:40 75 20 97 05/17/21 08:02 36.5 C 79 20 102/68 92 05/17/21 07:11 75 18 92 Laboratory Results Short CBC 05/17/21 Range/Units 07:47 WBC 8.12 (4.8-10.8) K/uL Hgb 14.5 (14.0-18.0) g/dL Hct 43.6 (42-52) % Plt Count 242 (130-400) K/uL BMP 05/17/21 07:47 Sodium 134 L Potassium 4.2 Chloride 102 Carbon Dioxide 25 BUN 17 Creatinine 0.72 Glucose 139 H Calcium 8.2 L Liver Function 05/17/21 Range/Units 07:47 AST 19 (15-37) U/L ALT 36 (12-78) Medications Administered Current Inpatient Medications Acetaminophen (Acetaminophen 325 Mg Tab) 650 mg PO Q4H PRN PRN Reason: Pain or Fever Stop: 06/11/21 17:05 Last Admin: 05/17/21 07:54 Dose: 650 mg Documented by: Dexamethasone (Dexamethasone 4 Mg Tab) 4 mg PO BID [facility] Stop: 06/15/21 20:59 Last Admin: 05/17/21 07:54 Dose: 4 mg Documented by: Enoxaparin Sodium (Enoxaparin Inj 40 Mg/0.4 Ml Syr) 40 mg SQ DAILY [facility] Stop: 06/15/21 08:59 Last Admin: 05/17/21 07:54 Dose: 40 mg Documented by: Famotidine (Famotidine 20 Mg Tab) 20 mg PO BID PRN PRN Reason: Heartburn Stop: 06/13/21 09:35 Guaifenesin (Guaifenesin 600 Mg Tabcr) 600 mg PO Q12 [facility] Stop: 06/11/21 20:59 Last Admin: 05/17/21 07:54 Dose: 600 mg Documented by: Ondansetron HCl (Ondansetron Inj 2 Mg/Ml 2 Ml Vial) 2 mg IV Q4H PRN PRN Reason: Nausea Stop: 06/12/21 03:55 Pantoprazole Sodium (Pantoprazole 40 Mg Tab) 40 mg PO QAM [facility] Stop: 06/12/21 08:59 Last Admin: 05/17/21 07:54 Dose: 40 mg Documented by:
[2021-05-18] MEDS: guaiFENesin 600 MG TABCR PO SCH ×2 (08:43→20:19)
[2021-05-18] MEDS: PANTOprazole 40 MG TAB PO SCH (08:43)
[2021-05-18] MEDS: ENOXAPARIN INJ 40 MG/0.4 ML SYR SQ SCH (08:43)
[2021-05-18] MEDS: dexAMETHasone 4 MG TAB PO SCH ×2 (08:43→20:19)
[2021-05-18] MEDS ORDERED: FUROSEMIDE INJ 20 MG/2 ML VIAL IV ONE (10:03)
--- NOTE | 2021-05-18 22:06 | Hospitalist Progress Note ---
Date of Service May 18, 2021 Assessment & Plan (1) Acute respiratory failure with hypoxia: Plan: 2/[address] PE negative for blood clot on admission Met SIRS criteria with fever and tachycardia on admission. No indication for baricitinib. Continue remdesivir and dexamethasone. Switched dexamethasone from IV to p.o. and it twice daily for longer lasting effect. Patient feels better on this. Cont guaifenesin, flutter valve, incentive spirometry. Cont to prone. OK with intubation at this time if needed. Cont PCU monitoring. Lasix PRN to keep him overall net negative. (2) Pneumonia due to COVID-19 virus: Plan: Cont remdesivir, dexamethasone. Pulmonary toilet. Continue supportive oxygen with weaning as tolerated. Patient is compliant with proning. (3) GERD (gastroesophageal reflux disease): Plan: Cont PPI daily (4) DVT prophylaxis: Plan: Lovenox Full Dispo-cont hospitalization until oxygen needs have resolved. [facility]azquez [facility] and Anticipated Discharge Date Admission Date: May 12, 2021 Subjective 55 yo M with two weeks of symptoms of COVID 19. Feels about the same as yesterday Slow improvement overall Doing well but somewhat stir crazy Tolerating PO Review of Systems Review of Systems: All systems were reviewed and negative except as indicated above. Physical Exam Physical Exam: CONSTITUTIONAL: WNWD, vitals as above, generally well- appearing, NAD, easily moves around the bed and is not winded EYES: normal conjunctivae, no scleral icterus ENT: external ear and nose normal, NECK: trachea midline, RESPIRATORY: no crackles, rales or wheezes, normal respiratory effort CARDIOVASCULAR: regular rate and rhythm, S1 and 2 heard without murmurs, gal lops or rubs, no JVD, no peripheral edema, GASTROINTESTINAL: soft, nontender, ND, no guarding MUSCULOSKELETAL: strength 5/5 throughout, head is normocephalic and atraumatic SKIN: warm and dry NEUROLOGIC: CN 2-12 grossly intact, no sensory deficit, normal cognition, normal speech, no tremor. No gross focal deficits. PSYCHIATRIC: alert cooperative and oriented to person, place and time. Results & Data Results & Data ([facility]) Vital Signs (Past 12 Hours) Vital Signs Temp Pulse Pulse Resp BP BP Pulse Ox 05/18/21 20:21 36.8 C 83 20 116/79 92 05/18/21 16:00 90 05/18/21 15:48 36.5 C 95 H 20 115/75 93 05/18/21 15:25 83 20 94 05/18/21 11:10 86 20 87 L 05/18/21 11:00 36.8 C 88 18 117/78 89 L Medications Administered Current Inpatient Medications Acetaminophen (Acetaminophen 325 Mg Tab) 650 mg PO Q4H PRN PRN Reason: Pain or Fever Stop: 06/11/21 17:05 Last Admin: 05/17/21 07:54 Dose: 650 mg Documented by: Dexamethasone (Dexamethasone 4 Mg Tab) 4 mg PO BID [facility] Stop: 06/15/21 20:59 Last Admin: 05/18/21 20:19 Dose: 4 mg Documented by: Enoxaparin Sodium (Enoxaparin Inj 40 Mg/0.4 Ml Syr) 40 mg SQ DAILY [facility] Stop: 06/15/21 08:59 Last Admin: 05/18/21 08:43 Dose: 40 mg Documented by: Famotidine (Famotidine 20 Mg Tab) 20 mg PO BID PRN PRN Reason: Heartburn Stop: 06/13/21 09:35 Guaifenesin (Guaifenesin 600 Mg Tabcr) 600 mg PO Q12 [facility] Stop: 06/11/21 20:59 Last Admin: 05/18/21 20:19 Dose: 600 mg Documented by: Ondansetron HCl (Ondansetron Inj 2 Mg/Ml 2 Ml Vial) 2 mg IV Q4H PRN PRN Reason: Nausea Stop: 06/12/21 03:55 Pantoprazole Sodium (Pantoprazole 40 Mg Tab) 40 mg PO QAM [facility] Stop: 06/12/21 08:59 Last Admin: 05/18/21 08:43 Dose: 40 mg Documented by:
[2021-05-19 07:36] LABS: BUN Creatinine Ratio 25.9 (10-20); C Reactive Protein 2.39 mg/dl (0-0.29); Calcium 8.4 mg/dl (8.5-10.1); Creatinine Clr Calc Pharmacy 105.1 ml/min; Est GFR (African American) 115.1 ml/min; Est GFR (Non-African American) 99.4 ml/min; Magnesium 2.3 mg/dl (1.8-2.4); Potassium 4.4 mmol/L (3.5-5.1)
[2021-05-19] MEDS: PANTOprazole 40 MG TAB PO SCH (08:39)
[2021-05-19] MEDS: dexAMETHasone 4 MG TAB PO SCH ×2 (08:39→20:29)
[2021-05-19] MEDS: ENOXAPARIN INJ 40 MG/0.4 ML SYR SQ SCH (08:39)
[2021-05-19] MEDS: guaiFENesin 600 MG TABCR PO SCH ×2 (08:39→20:30)
--- NOTE | 2021-05-19 08:54 | Hospitalist Progress Note ---
Date of Service May 19, 2021 Assessment & Plan (1) Acute respiratory failure with hypoxia: Plan: 2/[address] PE negative for blood clot on admission Met SIRS criteria with fever and tachycardia on admission. No indication for baricitinib. Finished 5 day course remdesivir and is continued on dexamethasone. Switched dexamethasone from IV to p.o. and it twice daily for longer lasting effect. Patient feels better on this. Cont guaifenesin, flutter valve, incentive spirometry. Cont to prone. OK with intubation at this time if needed. Cont PCU monitoring. Lasix PRN to keep him overall net negative. (2) Pneumonia due to COVID-19 virus: Plan: Finished remdesivir, cont. dexamethasone, as above. Pulmonary toilet. Continue supportive oxygen with weaning as tolerated. Patient is compliant with proning. (3) GERD (gastroesophageal reflux disease): Plan: Cont PPI daily (4) DVT prophylaxis: Plan: Lovenox Full Dispo-cont hospitalization until oxygen needs have resolved. Admission and Anticipated Discharge Date Admission Date: May 12, 2021 Subjective Patient seen in follow-up of COVID-19 pneumonia, hypoxia Patient initially admitted on 5 L of oxygen, now on high flow He actually says that he does not feel too bad, does not report increased shortness of breath, chest pain Initially had abdominal pain, that resolved quite quickly Says he has decent appetite Feeling tired of being here Review of Systems Review of Systems: All systems reviewed & are unremarkable except as noted in Subjective Physical Exam Physical Exam: CONSTITUTIONAL: WNWD, M in NAD EYES: normal conjunctivae, no scleral icterus ENT: external ear and nose normal, NECK: supple RESPIRATORY:normal respiratory effort, minimal rhonchi, no wheezing, on high flow nasal cannula CARDIOVASCULAR: regular rate and rhythm, S1 and 2 heard without murmurs, gallops or rubs, no JVD, no peripheral edema, GASTROINTESTINAL: soft, nontender, ND, no guarding MUSCULOSKELETAL: strength 5/5 throughout, head is normocephalic and atraumatic SKIN: warm and dry NEUROLOGIC:Alert and oriented, answering questions appropriately, no facial asymmetry, moves extremities PSYCHIATRIC: alert cooperative and oriented to person, place and time. Results & Data Results & Data ([facility]) Vital Signs (Past 12 Hours) Vital Signs Temp Pulse Resp BP BP Pulse Ox 05/19/21 08:22 77 22 92 05/19/21 08:04 36.5 C 80 16 112/74 89 L 05/19/21 04:02 36.5 C 89 18 120/83 90 05/19/21 03:35 71 22 88 L 05/18/21 23:24 36.8 C 91 H 21 116/80 93 05/18/21 23:02 77 21 93 Laboratory Results 05/19/21 05/19/21 Range/Units 06:01 06:01 Sodium 132 L (136-145) mmol/L Potassium 4.4 (3.5-5.1) mmol/L Chloride 99 (98-107) mmol/L Carbon Dioxide 25 (21-32) mmol/L Anion Gap 7.0 (3-11) BUN 21 H (7-18) mg/dl Creatinine 0.81 (0.6-1.4) mg/dl Est Cr Clr Drug Dosing 105.1 ml/min Est GFR ( Amer) 115.1 ml/min Est GFR (Non-Af Amer) 99.4 ml/min BUN/Creatinine Ratio 25.9 H (10-20) Glucose 118 H (70-99) mg/dl Calcium 8.4 L (8.5-10.1) mg/dl Phosphorus 4.0 (2.5-4.9) mg/dl Magnesium 2.3 (1.8-2.4) mg/dl C-Reactive Protein 2.39 H (0-0.29) mg/dl NT-Pro-B Natriuret Pep 59 (0-900) pg/ml Procalcitonin 0.08 (0-0.5) ng/ml Medications Administered Current Inpatient Medications Acetaminophen (Acetaminophen 325 Mg Tab) 650 mg PO Q4H PRN PRN Reason: Pain or Fever Stop: 06/11/21 17:05 Last Admin: 05/17/21 07:54 Dose: 650 mg Documented by: Dexamethasone (Dexamethasone 4 Mg Tab) 4 mg PO BID [facility] Stop: 06/15/21 20:59 Last Admin: 05/19/21 08:39 Dose: 4 mg Documented by: Enoxaparin Sodium (Enoxaparin Inj 40 Mg/0.4 Ml Syr) 40 mg SQ DAILY [facility] Stop: 06/15/21 08:59 Last Admin: 05/19/21 08:39 Dose: 40 mg Documented by: Famotidine (Famotidine 20 Mg Tab) 20 mg PO BID PRN PRN Reason: Heartburn Stop: 06/13/21 09:35 Guaifenesin (Guaifenesin 600 Mg Tabcr) 600 mg PO Q12 [facility] Stop: 06/11/21 20:59 Last Admin: 05/19/21 08:39 Dose: 600 mg Documented by: Ondansetron HCl (Ondansetron Inj 2 Mg/Ml 2 Ml Vial) 2 mg IV Q4H PRN PRN Reason: Nausea Stop: 06/12/21 03:55 Pantoprazole Sodium (Pantoprazole 40 Mg Tab) 40 mg PO QAM [facility] Stop: 06/12/21 08:59 Last Admin: 05/19/21 08:39 Dose: 40 mg Documented by:
[2021-05-19] MEDS ORDERED: LORazepam 0.5 MG TAB PO PRN (15:51)
[2021-05-19] MEDS: MELATONIN 3 MG TAB PO SCH (20:30)
[2021-05-19] MEDS ORDERED: SODIUM CHLORIDE 0.65% NA SOLN 45 ML (OCEAN) PRN (20:38)
--- NOTE | 2021-05-20 06:56 | Hospitalist Progress Note ---
Date of Service May 20, 2021 Assessment & Plan (1) Acute respiratory failure with hypoxia: Plan: 2/[address] PE negative for blood clot on admission Met SIRS criteria with fever and tachycardia on admission. No indication for baricitinib. Finished 5 day course remdesivir and is continued on dexamethasone. Switched dexamethasone from IV to p.o. and it twice daily for longer lasting effect. Patient feels better on this. Cont guaifenesin, flutter valve, incentive spirometry. Cont to prone. OK with intubation at this time if needed. Cont PCU monitoring. Lasix PRN to keep him overall net negative. (2) Pneumonia due to COVID-19 virus: Plan: Finished remdesivir, cont. dexamethasone, as above. Pulmonary toilet. Continue supportive oxygen with weaning as tolerated. Patient is compliant with proning. (3) GERD (gastroesophageal reflux disease): Plan: Cont PPI daily (4) DVT prophylaxis: Plan: Lovenox Full Dispo-cont hospitalization until oxygen needs have resolved. Admission and Anticipated Discharge Date Admission Date: May 12, 2021 Subjective Patient seen in follow-up of COVID-19 pneumonia, hypoxia Patient initially admitted on 5 L of oxygen, then on high flow currently about 8-10 L He does not report increased shortness of breath, chest pain, says he's comfortable Initially had abdominal pain/ diarrhea, that resolved quite quickly Says he has good appetite, no issues w/ BMs, had one today Review of Systems Review of Systems: All systems reviewed & are unremarkable except as noted in Subjective Physical Exam Physical Exam: CONSTITUTIONAL: WNWD, M in NAD EYES: normal conjunctivae, no scleral icterus ENT: external ear and nose normal, NECK: supple RESPIRATORY:normal respiratory effort, minimal rhonchi, no wheezing, on suppl. O2 CARDIOVASCULAR: regular rate and rhythm, S1 and 2 heard without murmurs, gallops or rubs, no JVD, no peripheral edema, GASTROINTESTINAL: soft, nontender, ND, no guarding MUSCULOSKELETAL: strength 5/5 throughout, head is normocephalic and atraumatic SKIN: warm and dry NEUROLOGIC:Alert and oriented, answering questions appropriately, no facial asymmetry, moves extremities PSYCHIATRIC: alert cooperative and oriented to person, place and time. Results & Data Results & Data ([facility]) Vital Signs (Past 12 Hours) Vital Signs Temp Pulse Pulse Resp BP BP Pulse Ox 05/20/21 03:42 36.7 C 68 18 118/80 94 05/19/21 23:02 36.5 C 89 18 116/74 89 L 05/19/21 22:00 85 05/19/21 19:36 36.7 C 90 16 125/80 91 Laboratory Results 05/20/21 Range/Units 06:18 Sodium 132 L (136-145) mmol/L Potassium 4.5 (3.5-5.1) mmol/L Chloride 100 (98-107) mmol/L Carbon Dioxide 26 (21-32) mmol/L Anion Gap 7.0 (3-11) BUN 22 H (7-18) mg/dl Creatinine 0.77 (0.6-1.4) mg/dl Est Cr Clr Drug Dosing 110.6 ml/min Est GFR ( Amer) 117.6 ml/min Est GFR (Non-Af Amer) 101.4 ml/min BUN/Creatinine Ratio 28.7 H (10-20) Glucose 131 H (70-99) mg/dl Calcium 8.4 L (8.5-10.1) mg/dl Phosphorus 3.7 (2.5-4.9) mg/dl Magnesium 2.4 (1.8-2.4) mg/dl Medications Administered Current Inpatient Medications Acetaminophen (Acetaminophen 325 Mg Tab) 650 mg PO Q4H PRN PRN Reason: Pain or Fever Stop: 06/11/21 17:05 Last Admin: 05/17/21 07:54 Dose: 650 mg Documented by: Dexamethasone (Dexamethasone 4 Mg Tab) 4 mg PO BID [facility] Stop: 06/15/21 20:59 Last Admin: 05/19/21 20:29 Dose: 4 mg Documented by: Enoxaparin Sodium (Enoxaparin Inj 40 Mg/0.4 Ml Syr) 40 mg SQ DAILY [facility] Stop: 06/15/21 08:59 Last Admin: 05/19/21 08:39 Dose: 40 mg Documented by: Famotidine (Famotidine 20 Mg Tab) 20 mg PO BID PRN PRN Reason: Heartburn Stop: 06/13/21 09:35 Guaifenesin (Guaifenesin 600 Mg Tabcr) 600 mg PO Q12 [facility] Stop: 06/11/21 20:59 Last Admin: 05/19/21 20:30 Dose: 600 mg Documented by: Lorazepam (Lorazepam 0.5 Mg Tab) 0.25 mg PO HS PRN PRN Reason: Sleep Stop: 06/18/21 15:50 Last Admin: 05/19/21 23:44 Dose: 0.25 mg Documented by: Melatonin (Melatonin 3 Mg Tab) 3 mg PO HS [facility] Stop: 06/18/21 20:59 Last Admin: 05/19/21 20:30 Dose: 3 mg Documented by: Ondansetron HCl (Ondansetron Inj 2 Mg/Ml 2 Ml Vial) 2 mg IV Q4H PRN PRN Reason: Nausea Stop: 06/12/21 03:55 Pantoprazole Sodium (Pantoprazole 40 Mg Tab) 40 mg PO [facility] Stop: 06/12/21 08:59 Last Admin: 05/19/21 08:39 Dose: 40 mg Documented by: Sodium Chloride (Sodium Chloride 0.65% Na Soln 45 Ml ([place])) 0 sprays NA PRN PRN; Protocol PRN Reason: Congestion Stop: 06/18/21 20:37
[2021-05-20 07:13] LABS: BUN Creatinine Ratio 28.7 (10-20); Calcium 8.4 mg/dl (8.5-10.1); Creatinine Clr Calc Pharmacy 110.6 ml/min; Est GFR (African American) 117.6 ml/min; Est GFR (Non-African American) 101.4 ml/min; Magnesium 2.4 mg/dl (1.8-2.4); Phosphorus 3.7 mg/dl (2.5-4.9); Potassium 4.5 mmol/L (3.5-5.1)
[2021-05-20] MEDS: dexAMETHasone 4 MG TAB PO SCH ×2 (07:59→20:32)
[2021-05-20] MEDS: guaiFENesin 600 MG TABCR PO SCH ×2 (07:59→20:32)
[2021-05-20] MEDS: ENOXAPARIN INJ 40 MG/0.4 ML SYR SQ SCH (07:59)
[2021-05-20] MEDS: PANTOprazole 40 MG TAB PO SCH (07:59)
[2021-05-20] MEDS: MELATONIN 3 MG TAB PO SCH (20:31)
[2021-05-21 08:06] LABS: BUN Creatinine Ratio 24.5 (10-20); Creatinine Clr Calc Pharmacy 102.6 ml/min; Est GFR (Non-African American) 98.4 ml/min; Magnesium 2.4 mg/dl (1.8-2.4); Potassium 4.4 mmol/L (3.5-5.1)
[2021-05-21 08:22] LABS: Phosphorus 3.1 mg/dl (2.5-4.9)
[2021-05-21] MEDS: guaiFENesin 600 MG TABCR PO SCH ×2 (08:53→21:36)
[2021-05-21] MEDS: ENOXAPARIN INJ 40 MG/0.4 ML SYR SQ SCH (08:53)
[2021-05-21] MEDS: dexAMETHasone 4 MG TAB PO SCH ×2 (08:53→21:35)
[2021-05-21] MEDS: PANTOprazole 40 MG TAB PO SCH (08:53)
--- NOTE | 2021-05-21 13:22 | Hospitalist Progress Note ---
Date of Service May 21, 2021 Assessment & Plan (1) Acute respiratory failure with hypoxia: Plan: 2/[address] PE negative for pulm. embolism on admission Met SIRS criteria with fever and tachycardia on admission. No indication for baricitinib. Finished 5 day course remdesivir and is continued on dexamethasone. Switched dexamethasone from IV to p.o. and it twice daily for longer lasting effect. Patient feels better on this. Cont guaifenesin, flutter valve, incentive spirometry. Cont to prone. OK with intubation at this time if needed. Cont PCU monitoring. Lasix PRN to keep him overall net negative. (2) Pneumonia due to COVID-19 virus: Plan: Finished remdesivir, cont. dexamethasone, as above. Pulmonary toilet. Continue supportive oxygen with weaning as tolerated. Patient is compliant with proning. (3) GERD (gastroesophageal reflux disease): Plan: Cont PPI daily (4) DVT prophylaxis: Plan: Lovenox Full Dispo-cont hospitalization until oxygen needs have resolved. Admission and Anticipated Discharge Date Admission Date: May 12, 2021 Subjective Patient seen in follow-up of COVID-19 pneumonia, hypoxia Patient initially admitted on 5 L of oxygen, then on high flow Currently on 4- 7 L He does not report increased shortness of breath, chest pain, says he's comfortable Initially had abdominal pain/ diarrhea, that resolved quite quickly Reports sinus congestion, not much cough Interested in poss. discharge Review of Systems Review of Systems: All systems reviewed & are unremarkable except as noted in Subjective Physical Exam Physical Exam: CONSTITUTIONAL: WNWD, M in NAD EYES: normal conjunctivae, no scleral icterus ENT: external ear and nose normal NECK: supple RESPIRATORY:normal respiratory effort, minimal rhonchi, no wheezing, on suppl. O2 CARDIOVASCULAR: regular rate and rhythm, S1 and 2 heard without murmurs, gallops or rubs, no JVD, no peripheral edema, GASTROINTESTINAL: soft, nontender, ND, no guarding MUSCULOSKELETAL: strength 5/5 throughout, head is normocephalic and atraumatic SKIN: warm and dry NEUROLOGIC:Alert and oriented, answering questions appropriately, no facial asymmetry, moves extremities PSYCHIATRIC: alert cooperative and oriented to person, place and time. Results & Data Results & Data ([facility]) Vital Signs (Past 12 Hours) Vital Signs Temp Pulse Pulse Resp BP BP Pulse Ox 05/21/21 12:09 36.4 C L 90 19 114/82 91 05/21/21 07:59 36.7 C 78 20 112/72 90 05/21/21 07:08 55 L 05/21/21 03:53 37.1 C 65 16 113/66 92 Laboratory Results 05/21/21 Range/Units 07:13 Sodium 132 L (136-145) mmol/L Potassium 4.4 (3.5-5.1) mmol/L Chloride 99 (98-107) mmol/L Carbon Dioxide 27 (21-32) mmol/L Anion Gap 6.0 (3-11) BUN 20 H (7-18) mg/dl Creatinine 0.83 (0.6-1.4) mg/dl Est Cr Clr Drug Dosing 102.6 ml/min Est GFR ( Amer) 114.0 ml/min Est GFR (Non-Af Amer) 98.4 ml/min BUN/Creatinine Ratio 24.5 H (10-20) Glucose 120 H (70-99) mg/dl Calcium 8.0 L (8.5-10.1) mg/dl Phosphorus 3.1 (2.5-4.9) mg/dl Magnesium 2.4 (1.8-2.4) mg/dl Medications Administered Current Inpatient Medications Acetaminophen (Acetaminophen 325 Mg Tab) 650 mg PO Q4H PRN PRN Reason: Pain or Fever Stop: 06/11/21 17:05 Last Admin: 05/17/21 07:54 Dose: 650 mg Documented by: Dexamethasone (Dexamethasone 4 Mg Tab) 4 mg PO BID [facility] Stop: 06/15/21 20:59 Last Admin: 05/21/21 08:53 Dose: 4 mg Documented by: Enoxaparin Sodium (Enoxaparin Inj 40 Mg/0.4 Ml Syr) 40 mg SQ DAILY [facility] Stop: 06/15/21 08:59 Last Admin: 05/21/21 08:53 Dose: 40 mg Documented by: Famotidine (Famotidine 20 Mg Tab) 20 mg PO BID PRN PRN Reason: Heartburn Stop: 06/13/21 09:35 Guaifenesin (Guaifenesin 600 Mg Tabcr) 600 mg PO Q12 [facility] Stop: 06/11/21 20:59 Last Admin: 05/21/21 08:53 Dose: 600 mg Documented by: Lorazepam (Lorazepam 0.5 Mg Tab) 0.25 mg PO HS PRN PRN Reason: Sleep Stop: 06/18/21 15:50 Last Admin: 05/19/21 23:44 Dose: 0.25 mg Documented by: Melatonin (Melatonin 3 Mg Tab) 3 mg PO HS [facility] Stop: 06/18/21 20:59 Last Admin: 05/20/21 20:31 Dose: 3 mg Documented by: Ondansetron HCl (Ondansetron Inj 2 Mg/Ml 2 Ml Vial) 2 mg IV Q4H PRN PRN Reason: Nausea Stop: 06/12/21 03:55 Pantoprazole Sodium (Pantoprazole 40 Mg Tab) [facility] Stop[facility] 06/12/21 08:59 Last Admin: 05/21/21 08:53 Dose: 40 mg Documented by: Sodium Chloride (Sodium Chloride 0.65% Na Soln 45 Ml ([place])) 0 sprays NA PRN PRN; Protocol PRN Reason: Congestion Stop: 06/18/21 20:37
[2021-05-21] MEDS ORDERED: COUGH DROP (SUGAR FREE) LOZ 24 LOZ/1 BOX BUCCAL PRN (18:37)
[2021-05-21] MEDS: MELATONIN 3 MG TAB PO SCH (21:35)
--- NOTE | 2021-05-22 06:42 | Hospitalist Progress Note ---
Date of Service May 22, 2021 Assessment & Plan (1) Acute respiratory failure with hypoxia: Plan: 2/[address] PE negative for pulm. embolism on admission Met SIRS criteria with fever and tachycardia on admission. No indication for baricitinib. Finished 5 day course remdesivir and is continued on dexamethasone. Switched dexamethasone from IV to p.o. and it twice daily for longer lasting effect. Patient feels better on this. Cont guaifenesin, flutter valve, incentive spirometry. Lasix PRN to keep him overall net negative. (2) Pneumonia due to COVID-19 virus: Plan: Finished remdesivir, cont. dexamethasone, as above. Pulmonary toilet. Continue supportive oxygen with weaning as tolerated. Patient is compliant with proning. (3) GERD (gastroesophageal reflux disease): Plan: Cont PPI daily (4) DVT prophylaxis: Plan: Lovenox Full Dispo-patient is very much interested in going home. He still requires oxygen. Two-step study was done, he does need 2 L at rest and 6 L with ambulation. Patient is aware of his oxygen requirement needs, also says that his is a nurse and they have a pulse ox to check O2 at home, and he would still like to be discharged. Admission and Anticipated Discharge Date Admission Date: May 12, 2021 Subjective Patient seen in follow-up of COVID-19 pneumonia, hypoxia Patient initially admitted on 5 L of oxygen, then on high flow Currently on 2-3 L He does not report increased shortness of breath, chest pain, says he's comfortable Initially had abdominal pain/ diarrhea, that resolved quite quickly Reports sinus congestion, not much cough Pt is very interested in discharge home 2 step study was done, patient requires 2 L at rest, and 6 L of oxygen with ambulation. Patient understands his oxygen requirement needs and is still very much interested in going home. Says that his is a nurse and they have a pulse ox at home as well to check. Review of Systems Review of Systems: All systems reviewed & are unremarkable except as noted in Subjective Physical Exam Physical Exam: CONSTITUTIONAL: WN/WD, M in NAD EYES: normal conjunctivae, no scleral icterus ENT: external ear and nose normal NECK: supple RESPIRATORY:normal respiratory effort, minimal rhonchi, no wheezing, on suppl. O2 2L CARDIOVASCULAR: regular rate and rhythm, S1 and 2 heard without murmurs, gallops or rubs, no JVD, no peripheral edema, GASTROINTESTINAL: soft, nontender, ND, no guarding MUSCULOSKELETAL: strength 5/5 throughout, head is normocephalic and atraumatic SKIN: warm and dry NEUROLOGIC:Alert and oriented, answering questions appropriately, no facial asymmetry, moves extremities PSYCHIATRIC: alert cooperative and oriented to person, place and time. Results & Data Results & Data ([facility]) Vital Signs (Past 12 Hours) Vital Signs Temp Pulse Pulse Resp BP Pulse Ox 05/22/21 04:00 36.6 C 70 14 114/78 94 05/21/21 23:49 36.9 C 78 20 101/66 91 05/21/21 20:00 73 05/21/21 19:33 36.6 C 82 18 112/68 91 Laboratory Results 05/22/21 Range/Units 07:05 Sodium 132 L (136-145) mmol/L Potassium 4.2 (3.5-5.1) mmol/L Chloride 100 (98-107) mmol/L Carbon Dioxide 29 (21-32) mmol/L Anion Gap 3.0 (3-11) BUN 19 H (7-18) mg/dl Creatinine 0.96 (0.6-1.4) mg/dl Est Cr Clr Drug Dosing 88.7 ml/min Est GFR ( Amer) 102.0 ml/min Est GFR (Non-Af Amer) 88.0 ml/min BUN/Creatinine Ratio 19.9 (10-20) Glucose 117 H (70-99) mg/dl Calcium 8.5 (8.5-10.1) mg/dl Phosphorus 3.2 (2.5-4.9) mg/dl Magnesium 2.4 (1.8-2.4) mg/dl Medications Administered Current Inpatient Medications Acetaminophen (Acetaminophen 325 Mg Tab) 650 mg PO Q4H PRN PRN Reason: Pain or Fever Stop: 06/11/21 17:05 Last Admin: 05/17/21 07:54 Dose: 650 mg Documented by: Dexamethasone (Dexamethasone 4 Mg Tab) 4 mg PO BID [facility] Stop: 06/15/21 20:59 Last Admin: 05/21/21 21:35 Dose: 4 mg Documented by: Enoxaparin Sodium (Enoxaparin Inj 40 Mg/0.4 Ml Syr) 40 mg SQ DAILY [facility] Stop: 06/15/21 08:59 Last Admin: 05/21/21 08:53 Dose: 40 mg Documented by: Famotidine (Famotidine 20 Mg Tab) 20 mg PO BID PRN PRN Reason: Heartburn Stop: 06/13/21 09:35 Guaifenesin (Guaifenesin 600 Mg Tabcr) 600 mg PO Q12 [facility] Stop: 06/11/21 20:59 Last Admin: 05/21/21 21:36 Dose: 600 mg Documented by: Lorazepam (Lorazepam 0.5 Mg Tab) 0.25 mg PO HS PRN PRN Reason: Sleep Stop: 06/18/21 15:50 Last Admin: 05/19/21 23:44 Dose: 0.25 mg Documented by: Melatonin (Melatonin 3 Mg Tab) 3 mg PO HS [facility] Stop: 06/18/21 20:59 Last Admin: 05/21/21 21:35 Dose: 3 mg Documented by: Menthol (Cough Drop (Sugar Free) Bernard 24 Bernard/1 Box) 1 bernard BUCCAL Q1H PRN PRN Reason: Sore Throat Stop: 06/20/21 18:36 Ondansetron HCl (Ondansetron Inj 2 Mg/Ml 2 Ml Vial) 2 mg IV Q4H PRN PRN Reason: Nausea Stop: 06/12/21 03:55 Pantoprazole Sodium (Pantoprazole 40 Mg Tab) 40 mg PO QAM [facility] Stop: 06/12/21 08:59 Last Admin: 05/21/21 08:53 Dose: 40 mg Documented by: Sodium Chloride (Sodium Chloride 0.65% Na Soln 45 Ml ([place])) 0 sprays NA PRN PRN; Protocol PRN Reason: Congestion Stop: 06/18/21 20:37
[2021-05-22] MEDS: ENOXAPARIN INJ 40 MG/0.4 ML SYR SQ SCH (07:47)
[2021-05-22] MEDS: dexAMETHasone 4 MG TAB PO SCH (07:47)
[2021-05-22] MEDS: guaiFENesin 600 MG TABCR PO SCH (07:47)
[2021-05-22] MEDS: PANTOprazole 40 MG TAB PO SCH (07:47)
[2021-05-22 07:48] LABS: BUN Creatinine Ratio 19.9 (10-20); Calcium 8.5 mg/dl (8.5-10.1); Creatinine Clr Calc Pharmacy 88.7 ml/min; Magnesium 2.4 mg/dl (1.8-2.4); Potassium 4.2 mmol/L (3.5-5.1)
[2021-05-22 07:49] LABS: Phosphorus 3.2 mg/dl (2.5-4.9)
--- NOTE | 2021-05-22 12:03 | Discharge Summary ---
Date of Service May 22, 2021 Admission HPI Per Admitting Provider 55 M w/ hx of GERD, who presents with fever, shortness of breath, cough and nausea, and found to be hypoxic and positive for covid 19. Pt reports feeling sick for several days now. His has similar symptoms and was diagnosed with covid 19 several days ago. Pt says he can't eat or drink much as he has been having abdominal discomfort and nausea. Denies having diarrhea. Reports having fevers for several days as well. Now presents with increased shortness of breath and cough. No chest pain. In the ED pt found hypoxic 85% on RA, and currently is on 5L of suppl.O2. Covid 19 test positive. CXR c/w multifocal pna. Admission Exam Per Admitting Provider Constitutional: WD/WN, vitals as above (M in NAD, on suppl.O2) Eyes: PERRL, conjunctivae normal, anicteric sclerae ENMT: external ear and nose normal, oropharynx normal Neck: trachea midline, no thyromegaly Respiratory: normal respiratory effort; no respiratory distress Auscultation: + rhonchi (mild diffuse); no crackles and no wheezes Cardiovascular: RRR, no murmur, no edema Chest (Breasts): Chest: normal inspection of chest Gastrointestinal (Abdomen): normal bowel sounds, soft, nontender, no hepatosplenomegaly Musculoskeletal: no cyanosis or clubbing, extremities motor strength 5/5 Head/Neck/Chest: normocephalic, head atraumatic and neck supple Skin: no rashes, warm and dry Neurologic: PERRL, EOMI, accommodation nl, no face palsy, no dysarthria Psychiatric: A+Ox3, euthymic affect Genitourinary: no CVA tenderness Lymphatic: no lymphedema Principal Diagnosis Acute hypoxic respiratory failure secondary to COVID-19 pneumonia Discharge Exam CONSTITUTIONAL: WN/WD, M in NAD EYES: normal conjunctivae, no scleral icterus ENT: external ear and nose normal NECK: supple RESPIRATORY:normal respiratory effort, minimal rhonchi, no wheezing, on suppl. O2 2L CARDIOVASCULAR: regular rate and rhythm, S1 and 2 heard without murmurs, gallops or rubs, no JVD, no peripheral edema, GASTROINTESTINAL: soft, nontender, ND, no guarding MUSCULOSKELETAL: strength 5/5 throughout, head is normocephalic and atraumatic SKIN: warm and dry NEUROLOGIC:Alert and oriented, answering questions appropriately, no facial asymmetry, moves extremities PSYCHIATRIC: alert cooperative and oriented to person, place and time. Discharge Data Allergies Allergy/AdvReac Type Severity Reaction Status Date / Time No Known Allergies Allergy Unverified 05/12/21 17:17 Consultations 05/12/21 17:46 ED Decision to Admit Stat Ordered Studies 05/12/21 16:04 CT angio chest PE protocol Stat IMPRESSION: 1. No pulmonary emboli. 2. Multilobar distribution of bilateral segmental groundglass and consolidative opacities compatible with viral pneumonia. 3. Mild mediastinal and hilar adenopathy, likely reactive. Hospital Course (1) Acute respiratory failure with hypoxia: 2/[address] PE negative for pulm. embolism on admission Met SIRS criteria with fever and tachycardia on admission. No indication for baricitinib. Finished 5 day course remdesivir and is continued on dexamethasone. Switched dexamethasone from IV to p.o. and it twice daily for longer lasting effect. Patient feels better on this. Cont guaifenesin, flutter valve, incentive spirometry. Lasix PRN to keep him overall net negative. (2) Pneumonia due to COVID-19 virus: Finished remdesivir, cont. dexamethasone, as above. Pulmonary toilet. Continue supportive oxygen with weaning as tolerated. Patient is compliant with proning. (3) GERD (gastroesophageal reflux disease): Cont PPI daily (4) DVT prophylaxis: Lovenox Full Dispo-patient is very much interested in going home. He still requires oxygen. Two-step study was done, he does need 2 L at rest and 6 L with ambulation. Patient is aware of his oxygen requirement needs, also says that his is a nurse and they have a pulse ox to check O2 at home, and he would still like to be discharged. Total Time Total Time Spent Total Time Spent (In Minutes): 40 Discharge Plan Discharge Items Patient Disposition: Home - Self-Care Reason For Visit: COVID 19 HYPOXIA Discharge Diagnosis: Acute hypoxic respiratory failure secondary to COVID-19 pneumonia Activity: Per Instructions section Non-emergency contact: Primary Care Provider Call non-emergency contact if: you have any medication questions and your symptoms worsen Follow-up/Referrals: Jose Yan MD [Primary Care Provider] - (Date & Time 05/25/2021 3:20 PM Provider Jose Yan MD Department Family Practice [facility] ) Diet: Regular Addtl Attending Provider Instructions: Follow-up with your primary care doctor, the appointment was scheduled for you for May 25. This is likely a telemedicine visit. Finish course of steroid, with dexamethasone. Take 4 mg twice a day for next 3 days, then take it only once a day. Recommend using guaifenesin for next couple of days. Also continue using your flutter valve and incentive spirometer. You need to use oxygen, 2 L at rest, at 6 L with ambulation. If you can, check your oxygen saturation with a pulse ox at home. Addtl Database Management Specialist Provider Instructions: Home Isolation COVID-19 Instructions The following information about Home Isolation is from the CDC Website: https://www.cdc.gov/coronavirus/2019-ncov/hcp/glrpsvse-exhrvta-tzyzud.html Stay home except to get medical care People who are mildly ill with COVID-19 are able to isolate at home during their illness. You should restrict activities outside your home, except for getting medical care. Do not go to work, school, or public areas. Avoid using public transportation, ride-sharing, or taxis. Separate yourself from other people and animals in your home People: As much as possible, you should stay in a specific room and away from other people in your home. Also, you should use a separate bathroom, if available. Animals: You should restrict contact with pets and other animals while you are sick with COVID-19, just like you would around other people. Although there have not been reports of pets or other animals becoming sick with COVID-19, it is still recommended that people sick with COVID-19 limit contact with animals until more information is known about the virus. When possible, have another member of your household care for your animals while you are sick. If you are sick with COVID-19, avoid contact with your pet, including petting, snuggling, being kissed or licked, and sharing food. If you must care for your pet or be around animals while you are sick, wash your hands before and after you interact with pets and wear a face mask. Call ahead before visiting your doctor If you have a medical appointment, call the healthcare provider and tell them that you have or may have COVID-19. This will help the healthcare providers office take steps to keep other people from getting infected or exposed. Wear a face mask You should wear a face mask when you are around other people (e.g., sharing a room or vehicle) or pets and before you enter a healthcare providers office. If you are not able to wear a face mask (for example, because it causes trouble breathing), then people who live with you should not stay in the same room with you, or they should wear a face mask if they enter your room. Cover your coughs and sneezes Cover your mouth and nose with a tissue when you cough or sneeze. Throw used tissues in a lined trash can. Immediately wash your hands with soap and water for at least 20 seconds or, if soap and water are not available, clean your hands with an alcohol-based hand lard renderer that contains at least 60% alcohol. Clean your hands often Wash your hands often with soap and water for at least 20 seconds, especially after blowing your nose, coughing, or sneezing; going to the bathroom; and before eating or preparing food. If soap and water are not readily available, use an alcohol-based hand lard renderer with at least 60% alcohol, covering all surfaces of your hands and rubbing them together until they feel dry. Soap and water are the best option if hands are visibly dirty. Avoid touching your eyes, nose, and mouth with unwashed hands. Avoid sharing personal household items You should not share dishes, drinking glasses, cups, eating utensils, towels, or bedding with other people or pets in your home. After using these items, they should be washed thoroughly with soap and water. Clean all high-touch surfaces everyday High touch surfaces include counters, tabletops, doorknobs, bathroom fixtures, toilets, phones, keyboards, tablets, and bedside tables. Also, clean any surfaces that may have blood, stool, or body fluids on them. Use a household cleaning spray or wipe, according to the label instructions. Labels contain instructions for safe and effective use of the cleaning product including precautions you should take when applying the product, such as wearing gloves and making sure you have good ventilation during use of the product. Monitor your symptoms Seek prompt medical attention if your illness is worsening (e.g., difficulty breathing).Beforeseeking care, call your healthcare provider and tell them that you have, or are being evaluated for, COVID-19. Put on a face mask before you enter the facility. These steps will help the healthcare providers office to keep other people in the office or waiting room from getting infected or exposed. Ask your healthcare provider to call the local or state health department. Persons who are placed under active monitoring or facilitated self- monitoring should follow instructions provided by their local health department or occupational health professionals, as appropriate. When working with your local health department check their available hours. If you have a medical emergency and need to call 911, notify the dispatch personnel that you have, or are being evaluated for COVID-19. If possible, put on a face mask before emergency medical services arrive. Discontinuing home isolation Patients with confirmed COVID-19 should remain under home isolation precautions until the risk of secondary transmission to others is thought to be low. The decision to discontinue home isolation precautions should be made on a [id number] basis, in consultation with healthcare providers and critical access hospital and [facility] health departments. Coronavirus disease 2019 (COVID-19) is a virus that causes a respiratory illness. It is caused by a coronavirus called 2019 novel coronavirus (2019- nCoV). There are many types of coronavirus. Coronaviruses are a very common cause of bronchitis. They may sometimes cause lung infection(pneumonia). Symptoms can range from mild to severe respiratory illness. These viruses are also foundin some animals. COVID-19 was first found in people in [facility], in late 2019. In 2020, several cases of COVID-19 have been confirmed in the [place] Public health officials are working to find the source. How the virus spreads is not yet fully known. It may be spread through droplets of fluid that a person coughs or sneezes into the air. It may be spread if you touch a surface with virus on it, such as a handle or object, and then touch your mouth. What are the symptoms of COVID-19? Some people have no symptoms or mild symptoms. Symptoms may appear 2 to 14 days after contact with the virus. Symptoms can include: Fever Coughing Trouble breathing What are possible complications from COVID-19? In many cases, this virus can cause infection (pneumonia) in both lungs. In some cases, this can cause . How is COVID-19 diagnosed? Your healthcare provider will ask about your symptoms. He or she will also ask about your recent travel and contact with sick people. Testing for the virus is only done through the CDC. If yourhealthcare provider thinks you may have COVID- 19, he or she will work with your local health department and the CDC on testing. Follow all instructions from your healthcare provider. COVID-19 is diagnosed by: Nasal and throat swab. A cotton-tipped swab is wiped inside your nose or throat. This is done to check for viruses in your nasal mucus. Sputum culture. A small sample of mucus coughed from your lungs (sputum) is collected if you have a cough. It is checked for the virus. How is COVID-19 treated? There is currently no medicine to treat the virus. Treatment is done to help your body while it fights the virus. This is known as supportive care. [place] pportive care may include: Pain medicine. These include acetaminophen and ibuprofen. They are used to help ease pain and reduce fever. Bed rest. This helps your body fight the illness. For severe illness, you may need to stay in the hospital. Care during severe illness may include: IV (intravenous) fluids.These are given through a vein to help keep your body hydrated. Oxygen. Supplemental oxygen or ventilation with a breathing machine (ventilator) may be given. This is done to keep enough oxygen in your body. Are you at risk for COVID-19? If youve been to a place where people have been sick with this virus, you are at risk for infection. You are at risk if you: Recently traveled to an affected area Had contact with a sick person who recently traveled to this area Had contact with a person who was diagnosed with COVID-19 How can COVID-19 be prevented? There is no vaccine yet. The best prevention is to not have contact with the virus. The CDC advises that people should not travel to areas where there are COVID-19 outbreaks right now for any reason that is not urgent. To help prevent spreading the infection, wash your hands often, or use an alcohol-basedhand lard renderer. If you are in an area with COVID-19: Wash your hands often. Or use an alcohol-based hand lard renderer often. Only touch your eyes, nose, or mouth with clean hands. Dont have contact with people who are sick. Follow local instructions about being in public. For example, you may be told to not use public transport for a period of time. Stay away from markets that have live or animals. Wash your hands after touching any animals. Don't touch animals that may be sick. Dont share eating or drinking tools with sick people. Dont kiss someone who is sick. Clean surfaces often with disinfectant. If you were in an area with COVID-19 in the last 14 days: Call your healthcare provider. He or she can talk with local health staff to see what action may be needed. Follow all instructions from your provider. Take your temperature every morning and evening for at least 14 days. This is to check for fever. Keep a record of the readings. Keep watch for symptoms of the virus. Tell your provider right away if you have symptoms. If you were in an area with COVID-19 and have a fever or other symptoms: Dont panic. Keep in mind that other illnesses can cause similar symptoms. Stay away from work, school, and public places. Limit physical contact with family members. Don't kiss anyone or share eating or drinking utensils. Clean surfaces you touch with disinfectant. This is to help prevent the virus from spreading. Call your healthcare provider. Explain that you have been exposed to COVID-19 and have symptoms. Do this before going to any hospital. Wait for instructions. Keep in mind that healthcare staff may wear protective equipment such as masks, gowns, gloves, and eye protection. You may be put in a separate room. This is to prevent the possible virus from spreading. Tell the healthcare staff about recent travel. This includes local travel on public transport. Staff may need to find other people you have been in contact with. Follow all instructions the healthcare staff give you. If you have been diagnosed with COVID-19 Follow all instructions from your healthcare provider. Dont leave your home, except to get medical care. Call your healthcare providers office before going. They can prepare and give you instructions. This will help prevent the virus from spreading. Dont go to work, school, or public areas. Dont use public transport or taxis. Stay away from other people in your home. Have them wear face masks around yo u. Dont share household items or food. Wear a face mask if you can. This includes at home or in a medical facility. Cover your face with a tissue when you cough or sneeze. Throw the tissue away. Wash your hands. Wash your hands often. Caregivers should: Follow all instructions from healthcare staff. Wear a face mask and protective clothing as advised. Wash hands often. Keep track of the sick persons symptoms. Clean surfaces, fabrics, and laundry thoroughly. Keep other people away from the sick person. When to call your healthcare provider Call your healthcare provider: If youve recently traveled and have symptoms If you have been diagnosed with COVID-19 and your symptoms are worse To learn more To find out more about COVID-19, visit the CDC website at www.cdc.gov/coronavirus/2019-ncov/index.html. [employer]. [address] [place] [address]. All rights reserved. This information is not intended as a substitute for professional medical care. Always follow your healthcare professional's instructions. This information has been adapted from [employer] Pending Studies at Discharge: No Stand-Alone Forms: My [facility] [employer], Smoking Cessation Medications and DC Order Prescriptions: New dexamethasone 4 mg Tablet 4 mg PO BID Qty: 10 RF: 0 guaifenesin [Mucinex] 600 mg Tablet Extended Release 12hr 600 mg PO Q12 Qty: 14 RF: 0 famotidine 20 mg Tablet 20 mg PO DAILY Qty: 7 RF: 0 Continued naproxen sodium [Aleve] 220 mg Tablet 220 mg PO Q8H PRN (Reason: Fever Or Pain) RF: 0 omeprazole 20 mg capsule,delayed release(DR/EC) 20 mg PO DAILY PRN (Reason: Acid Reflux) RF: 0 Discharge Orders: Discharge Order (Routine); Ordered 05/22/21 Ordered By: Yann Maldonado Admission Data Admit Date/Time: 05/12/21 17:06 Attending Provider: Yann Maldonado Admit Provider: Yann Maldonado Primary Care Provider: Jose Yan Other Providers: Yann Maldonado ; Kiara Vazquez
== END 2021-05-22 05:15 | disposition home or self-care (01) | DRG 871 ==
LOC: ED 14:15 → EDINP 17:06 → SUATTDRO 17:06 → 2W 19:58 → 2S 05-14 11:31